=== PATIENT | male | born 1975 | race Caucasian/White ===

== ENCOUNTER 2017-08-09 11:13 | Day surgery (SDC) | payer BC, OTHER ==
[~2017-08-09] VITALS: Ht 170.2 cm; Wt 108.0 kg
--- NOTE | 2017-08-09 11:52 | RADRPT ---
PROCEDURE: XR Chest AP portable CLINICAL INDICATION: Preop lumbar surgery TECHNIQUE: An AP portable radiograph of the chest was submitted. COMPARISON: None. FINDINGS: Support Hardware: None Cardiovascular: The cardiovascular silhouette appears unremarkable. Lung Auguste: The lung auguste appear clear with no nodule, alveolar infiltrate, or interstitial promi nence evident. Pleural Spaces: No pneumothorax or pleural effusion is identified. Osseous Structures: The osseous structures appear intact. Soft Tissues: The soft tissues appear generous. IMPRESSION: Unremarkable portable chest. Physician Garima Date Time Electronically viewed and signed by Mariano Power Physician on 08/09/2017 11:51 /
[2017-08-09] MEDS ORDERED: SITA1TAB5 PO (11:53)
[2017-08-09] MEDS ORDERED: DIVA500T7 PO (11:55)
[2017-08-09] MEDS ORDERED: OXCA300T41 PO (11:56)
[2017-08-09] MEDS ORDERED: AMLO-147 PO (11:57)
[2017-08-09] MEDS ORDERED: HYDR25TA6 PO (11:57)
[2017-08-09] MEDS ORDERED: GLIP5TAB13 PO (11:58)
[2017-08-09] MEDS ORDERED: ATOR20TA38 PO (11:59)
[2017-08-09] MEDS ORDERED: INSU300I SQ (11:59)
--- NOTE | 2017-08-09 12:16 | PREOPHP ---
DATE OF ADMISSION: 08/09/2017 HISTORY OF PRESENT ILLNESS: The patient was originally seen in the office for evaluation of low back pain with pain going to the lower extremities. He was diagnosed with lumbar L4-L5, L5-S1 spondylosis with instability. Outpatient management with epidural injections were initiated. The patient did not improve. The patient also had physical therapy , which she did not respond to at all and continues to complain of low back pain with pain going to the lower extremities. According to the patient, his pain is getting worse and he wants something definitive to be done. The only option left at this point is for surgical intervention in the form of L4-L5, L5-S1 laminectomy with possible interbody fusion, positive posterolateral in situ fusion and possible posterolateral instrumentation. This was discussed with the patient in great detail. Complications of surgery were discussed extensively. The patient has agreed and wants to proceed. PAST MEDICAL HISTORY: Per chart. PAST SURGICAL HISTORY: Per chart. SOCIAL HISTORY: Deniesuse of drugs, alcohol, or tobacco. ALLERGIES: PER CHART. MEDICATIONS TAKEN AT HOME: Per chart. FAMILY HISTORY: Unremarkable. REVIEW OF SYSTEMS: Additional 10-point review of systems conducted, pertinent and positives in the HPI, otherwise negative. PHYSICAL EXAMINATION: GENERAL: The patient is awake, alert, oriented. Follows commands appropriately. HEENT: Head is atraumatic, normocephalic. Eyes sclerae clear, nonicteric. Uvula is intact. Pupils equal and reactive. No mouth. No lesions. No bleeding. NECK: Supple. No thyromegaly. No JVD. No accessory muscle use. PULMONARY: No dyspnea. No tachypnea. CARDIOVASCULAR: No JVD. No pedal edema. ABDOMEN: Soft. Without guarding. NEUROLOGIC: Awake, alert, oriented, follows commands appropriately. Upper extremities moves both sides equally. EXTREMITIES: Lower extremity examination, flexion and extension of the lumbar spine causes significant low back discomfort. Flexion and extension of the hips causes severe low back discomfort. The patient has positive leg raise on both sides. He moves both sides equally at the knees as well as the ankles. Sensation is intact. Strength is the same. LABORATORY DATA: MRI of the lumbar spine dated May 17, shows L4-L5 instability with open facets. L5-S1 instability with endplate abnormality. RECOMMENDATIONS: For the patient to undergo surgical intervention in the form of L4-L5, L5-S1 laminectomy with possible interbody fusion, possible posterolateral fusion with instrumentation. The procedure was described to the patient in great detail. Complications including infection, bleeding, permanent nerve damage, complications with anesthesia associated with stroke, heart attack, and even has been explained to the patient. The patient has agreed and wants to proceed. The patient will be admitted to the hospital thereafter for further care and management. Dictated By: Grayson Diaz MD /[email or web address]/[email or web address] /Document#: [id number]
[2017-08-09 12:20] VITALS: BP 138/102; PULSE 94; RESP 16
[2017-08-09 12:23] VITALS: Ht 170.2 cm; Wt 108.0 kg
== END 2017-08-09 12:25 | disposition home or self-care (01) ==
LOC: REC 11:13 → SDS 11:13 → UNDOADMIN 11:13 → UNDODISIN 12:25 → SDS 12:25 → EDSTATUS 08-11 13:00
PROVIDERS: ATTEND Neurological Surgery
DX: M47.896 Other spondylosis, lumbar region (principal); Z53.8 Procedure and treatment not carried out for other reasons
CPT/HCPCS: 71010

== ENCOUNTER 2017-09-07 09:59 | Inpatient (IN) | payer BC ==
[~2017-09-07] VITALS: Ht 170.2 cm; Wt 108.2 kg
[2017-09-07] VITALS (21 sets, daily range): BP systolic 98–149; BP diastolic 59–108; PULSE 80–106; RESP 13–27; Ht 170.2 cm; Wt 108.2 kg
--- NOTE | 2017-09-07 08:16 | PREOPHP ---
DATE OF ADMISSION: 09/07/2017 HISTORY OF PRESENT ILLNESS: Patient was originally seen in the office with a complaint of severe low back pain, with pain radiating to the hips and down the legs. Patient was diagnosed with a lumbar 4, lumbar 5 and S1 spondylosis. Conservative management was offered to the patient in the form of lumbar epidural steroid injections, physical therapy, as well as pain management, but unfortunately, patient failed conservative management, failed outpatient therapy. He wanted something more definitive to be done. His condition is getting worse. His pain was increasing and patient wanted something definitive to be done. Unfortunately, at this point, the only option left was surgical intervention in the form of L4-5, S1 laminectomy with possible fusion with possible instrumentation. This was discussed with the patient in great detail, complications of surgical intervention were discussed extensively including infection, bleeding, permanent nerve damage, stroke, myocardial infarction, even . Patient agreed and wants to proceed. PAST MEDICAL HISTORY: Per chart. PAST SURGICAL HISTORY: Per chart. SOCIAL HISTORY: Denies any drugs, alcohol or tobacco. ALLERGIES: PER CHART. MEDICATIONS: Taken at home, per chart. FAMILY HISTORY: Unremarkable. REVIEW OF SYSTEMS: Additional 10-point review of systems conducted. The patient denies any debility. Denies any bowel or bladder dysfunction. PHYSICAL EXAMINATION: GENERAL APPEARANCE: Patient is awake, alert, oriented. Follows commands properly. HEENT: Unremarkable. No cyanosis. Mouth: No lesions. NECK: Supple. PULMONARY: No dyspnea. No tachypnea. CARDIAC: No JVD. No pedal edema. ABDOMEN: Soft, without guarding. NEUROLOGIC: He is awake, alert, oriented. Follows commands. GCS 15. Cranial nerves intact. UPPER EXTREMITIES: Moves both sides equally at the shoulders, elbows and wrists. LOWER EXTREMITIES: Upon flexion-extension of the lumbar spine, the patient has low back discomfort. Flexion-extension of the hips causes the patient low back discomfort. He has equal flexion-extension at the knees, as well as ankle strength is equal on both sides. Sensation is intact. DIAGNOSTIC DATA: MRI of the lumbar spine shows L4-5, S1 spondylosis. IMPRESSION: L4-5, S1 spondylosis with mechanical low back pain. RECOMMENDATIONS: Patient to undergo surgical intervention, L4-5, S1 laminectomy, with possible fusion with possible instrumentation. This was discussed with the patient in great detail. Questions were answered. Complications of surgery discussed extensively, and patient will be admitted to the hospital thereafter for further care and management and postop care. Dictated By: Grayson Diaz MD /[email or web address]/mirta /Document#: [id number]
[~2017-09-07 09:59] MED LIST: AMLO-147 PO; ATOR20TA38 PO; DIVA500T7 PO; GLIP5TAB13 PO; HYDR25TA6 PO; INSU300I SQ; OXCA300T41 PO; ROCURONIUM 50 MG INJ ONE; SITA1TAB5 PO
[2017-09-07] MEDS ORDERED: GELATIN SIZE 100 SPONGE ONE ×2 (12:19→14:45)
[2017-09-07] MEDS ORDERED: BUPIVACAINE 0.5%/EPI (SDV) 30 ML INJ ONE (12:19)
[2017-09-07] MEDS ORDERED: THROMBIN 5000 UNIT VIAL ONE ×2 (12:19→14:45)
[2017-09-07] MEDS ORDERED: PROPOFOL 20 ML ONE (12:50)
[2017-09-07] MEDS ORDERED: LIDOCAINE 2% (SDV) 5 ML INJ ONE (12:50)
[2017-09-07] MEDS ORDERED: MIDAZOLAM 1 MG/ML 2 ML INJ ONE (12:50)
[2017-09-07] MEDS ORDERED: SUCCINYLCHOLINE CHLORIDE 100 MG/5 ML SYG IV ONE (12:50)
[2017-09-07] MEDS ORDERED: ONDANSETRON 4 MG INJ IV PRN ×2 (13:00→16:00)
[2017-09-07] MEDS ORDERED: VANCOMYCIN 1 GM (PMX) 250 ML ONE (13:06)
[2017-09-07] MEDS ORDERED: FAMOTIDINE 20 MG INJ ONE (13:07)
[2017-09-07] MEDS ORDERED: ONDANSETRON 4 MG INJ ONE (13:07)
[2017-09-07] MEDS ORDERED: PHENYLephrine (100 MCG/ML) 5ML SYG ONE ×4 (13:18→14:44)
[2017-09-07] MEDS ORDERED: ESMOLOL 10 ML ONE (13:50)
[2017-09-07] MEDS ORDERED: EPHEDrine SULFATE 50 MG/5 ML SYG ONE (14:20)
--- NOTE | 2017-09-07 14:58 | OPR ---
Date/Time of Note Date/Time of Note DATE: 09/07/17 TIME: 14:55 Operative Report Procedure Date: Sep 07, 2017 Preoperative Diagnosis LUMBAR SPONDYLOSIS WITH MECHANICAL LOW BACK PAIN AND LEG PAIN, L4-5-S1 Postoperative Diagnosis SAME Operation/Procedure Performed LUMBAR FOUR FIVE AND SACRAL ONE LAMINECTOMY WITH POSTEROLATERAL FUSION AND PEDICLE SCREW INSTRUMENTATION Surgeon BARBARA CALIXTO see signature line Director Game RICK ROSALES Anesthesia Type: general Anesthesiologist: MEL UMANZOR DO Estimated Blood Loss: 250 - 300 ml's Transfusion none Specimen LAMINA Grafts/Implants none Complications none Pt Condition Post Procedure: stable Procedure Description LUMBAR LAMINECTOMY WITH FUSION AND INSTRUMENTATION BARBARA CALIXTO MD Sep 07, 2017 14:58
[2017-09-07] MEDS: LACTATED RINGER'S 1,000 ML IV SCH ×2 (15:00→22:03)
[2017-09-07] MEDS ORDERED: SUGAMMADEX SODIUM 200 MG/2 ML VIAL IV ONE (15:18)
[2017-09-07] MEDS ORDERED: FENTAnyl 50 MCG/ML VIAL ONE (15:51)
[2017-09-07] MEDS ORDERED: HYDROmorphONE (0.2 MG/ML) 10ML SYG IV ONE (15:52)
[2017-09-07] MEDS ORDERED: MEPERIDINE 25 MG INJ IV PRN (16:00)
[2017-09-07] MEDS ORDERED: hydrALAzine 20 MG INJ IV PRN (16:00)
[2017-09-07] MEDS ORDERED: VANCOMYCIN 1 GM in NS 250 ML IVPB SCH (16:00)
[2017-09-07] MEDS ORDERED: PROCHLORPERAZINE 10 MG INJ IV PRN (16:00)
[2017-09-07] MEDS ORDERED: LABETALOL HCL 20MG INJ IV PRN (16:00)
[2017-09-07] MEDS ORDERED: HYDROmorphONE (0.2 MG/ML) 10ML SYG IV PRN ×2 (16:00)
[2017-09-07] MEDS ORDERED: NALOXONE (0.4 MG/ML) INJ IV PRN (16:00)
[2017-09-07] MEDS ORDERED: DIPHENHYDRAMINE 50 MG INJ IV PRN (16:00)
[2017-09-07] MEDS ORDERED: FENTAnyl 50 MCG/ML VIAL IV PRN ×2 (16:30)
[2017-09-07] MEDS: HYDROmorphONE 0.2 MG/ML PCA IV SCH (16:37)
[2017-09-07 18:52] LABS: CREATININE 1.15 mg/dl (0.61-1.24)
--- NOTE | 2017-09-07 19:10 | RADRPT ---
PROCEDURE: N T4-S1 and lumbar fusion CLINICAL INDICATION: Pain TECHNIQUE: C-arm fluoroscopy COMPARISON: None FINDINGS: Total fluoro time 18.7 seconds. 5 images submitted. There are fusion screws placed through the poste rior approach at the L4 L5 and S1 levels. Sacroiliac joints are open. Height and width of the verteb ral bodies appear intact. IMPRESSION: C-arm fluoroscopy as above RPTAT: AAOO Physician Alysia Date Time Electronically viewed and signed by Physician Alysia on 09/07/2017 18:59 MB/
[2017-09-07] MEDS ORDERED: GLUCOSE GEL 15 GRAM TUBE BUCCAL PRN (19:30)
[2017-09-07] MEDS ORDERED: GLUCOSE GEL 15 GRAM TUBE PO PRN ×2 (19:30)
[2017-09-07] MEDS ORDERED: GLUCAGON 1 MG INJ IM PRN (19:30)
[2017-09-07] MEDS ORDERED: DEXTROSE 50% 50 ML SYRINGE IV PRN ×2 (19:30)
[2017-09-07] MEDS: ATORVASTATIN 20 MG TAB PO SCH (21:54)
[2017-09-07] MEDS: OXCARBAZEPINE 300 MG TAB PO SCH (21:54)
[2017-09-07] MEDS: DIVALPROEX (EC) 500 MG TAB PO SCH (21:54)
[2017-09-07] MEDS: INSULIN ASPART [NOVOLOG] 3 ML PEN SC SCH (21:55)
[2017-09-07] MEDS: INSULIN GLARGINE [LANtus] 3 ML PEN SC SCH (21:56)
[2017-09-08] MEDS: ACCU-CHEK XX SCH ×2 (01:21→23:27)
[2017-09-08] MEDS: LACTATED RINGER'S 1,000 ML IV SCH ×3 (04:50→23:23)
[2017-09-08 05:00] VITALS: BP 141/78; PULSE 110; RESP 18
[2017-09-08] MEDS ORDERED: VANCOMYCIN 1.5 GM in SOD CHLORIDE 0.9% 250 ML IVPB SCH (05:00)
[2017-09-08] MEDS: HYDROmorphONE 0.2 MG/ML PCA IV SCH ×2 (05:04→18:32)
[2017-09-08 07:42] VITALS: BP 108/56; RESP 20
[2017-09-08] MEDS: OXCARBAZEPINE 300 MG TAB PO SCH ×2 (08:53→20:16)
[2017-09-08] MEDS: LINAGLIPTIN 5 MG TABLET PO SCH (08:54)
[2017-09-08] MEDS: DIVALPROEX (EC) 500 MG TAB PO SCH ×2 (08:54→20:16)
[2017-09-08] MEDS: metFORMIN 500 MG TAB PO SCH ×2 (08:54→17:48)
[2017-09-08] MEDS: INSULIN ASPART [NOVOLOG] 3 ML PEN SC SCH ×4 (09:01→21:00)
[2017-09-08 09:06] LABS: BASOPHILS % 0.1 % (0.0-2.0); HEMATOCRIT 36.4 % (42.0-52.0); LYMPHOCYTES # 1.9 10^3/ul (0.8-2.9); LYMPHOCYTES % 11.8 % (15.0-51.0); MEAN CORPUSCULAR HEMOGLOBIN 28.8 pg (29.0-33.0); MEAN CORPUSCULAR VOLUME 87.3 fl (82.0-101.0); MEAN PLATELET VOLUME 10.5 fl (7.4-10.4); MONOCYTE # 1.4 10^3/ul (0.3-0.9); MONOCYTES % 9.2 % (0.0-11.0); NEUTROPHIL # 12.4 10^3/ul (1.6-7.5); NEUTROPHILS % 78.5 % (39.0-77.0); PLATELET COUNT 223 10^3/UL (140-415); RED BLOOD COUNT 4.17 10^6/ul (4.70-6.10); RED CELL DISTRIBUTION WIDTH 12.7 % (11.5-14.5); WHITE BLOOD COUNT 15.7 10^3/ul (4.8-10.8)
[2017-09-08] MEDS ORDERED: INFLUENZA VIRUS VACCINE 0.5 ML SYG IM* ONE (13:00)
--- NOTE | 2017-09-08 13:43 | HP ---
Date/Time of Note Date/Time of Note DATE: 09/08/17 TIME: 13:41 Assessment/Plan VTE Prophylaxis VTE Prophylaxis Intervention: SCD's Lines/Catheters IV Catheter Type (from Nrsg): Peripheral IV Urinary Cath still in place: Yes Reason Cath still needed: urinary retention Assessment/Plan Assessment/Plan -Lumbar spondylosis with mechanical low back pain and leg pain, status post L4- L5 and sacral laminectomy with posterolateral fusion and pedicle screw instrumentation by Dr. Diaz on 09/07. Continue IV fluids, postoperative antibiotics, Dilaudid RAISIN WASHER for pain. -Hypertension -Hyperlipidemia -Diabetes, continue Tradjenta, Lantus, and NovoLog -Seizure disorder, continue Depakote Further recommendations based on clinical course. Plan of care discussed with Dr. Mills. HPI/ROS Admit Date/Time Admit Date/Time Sep 07, 2017 at 09:59 Hx of Present Illness The patient is 41-year-old male with history of hypertension hyperlipidemia, seizure disorder, diabetes and a lower back pain. Patient was evaluated by Dr. Diaz in surgical consultation for lumbar spondylosis with mechanical low back pain and leg pain failed conservative treatment. Patient was brought to the hospital and underwent L4-L5 and sacral laminectomy with posterolateral fusion and pedicle screw instrumentation by Dr. Diaz on 09/07. Prior to surgery as patient obtain a cardiology clearance from Dr. Malhotra, and neurological clearance from Dr. Castillo. Patient is admitted for further evaluation and management to medical surgical floor. PMH/Family/Social Past Medical History Medical History: diabetes, hypertension, hyperthyroid, other (Seizure disorder) Past Surgical History Status post appendectomy many years ago Family History Significant Family History: other (Father from heart attack at age of 55, mother and sister with diabetes) Social History Alcohol Use: none Smoking Status: Never smoker Drug Use: none Exam/Review of Systems Vital Signs Vitals Vital Signs Date Time Temp Pulse Resp B/P Pulse Ox O2 Delivery O2 Flow Rate FiO2 09/08/17 12:48 16 09/08/17 07:42 98.0 113 108/56 95 09/08/17 05:00 Nasal Cannula 2.0 Intake and Output 09/07/17 09/07/17 09/08/17 15:00 23:00 07:00 Intake Total 2000 ml 370 ml 1400 ml Output Total 915 ml 1835 ml Balance 2000 ml -545 ml -435 ml Exam Constitutional: alert, oriented Head: normocephalic Neck: supple Respiratory: normal air movement Cardiovascular: nl pulses Gastrointestinal: non-tender, soft Musculoskeletal: nl extremities to inspection, other (Status post back surgery) Neurological: nl mental status Skin: nl turgor Labs Result Diagram: 09/08/17 0834 09/07/17 1818 Medications Medications Current Medications Ondansetron HCl 4 mg 4 mg Q6H PRN IV NAUSEA AND/OR VOMITING; Start 09/07/17 at 13:00 Lactated Ringer's (Lr) 1,000 ml @ 125 mls/hr Q8H IV Last administered on 10:32; Admin Dose 125 MLS/HR; Start 09/07/17 at 15:00 Morphine Sulfate (morphine) 2 mg Q2H PRN IV severe pain; Start 09/07/17 at 13: 00 Acetaminophen/ Hydrocodone Bitart ([place] (10/325)) 1 tab Q4H PRN PO PAIN; Start 09/07/17 at 13:00 Naloxone HCl (Narcan) 0.2 mg PRN PRN IV DECREASED REPIRATORY RATE; Start 09/07 at 16:00 Hydromorphone HCl (Dilaudid RAISIN WASHER) Q4PCA IV Last administered on 09/08/17 05:04 ; Admin Dose 6 MG; Start 09/07/17 at 16:00 Atorvastatin Calcium (Lipitor) 20 mg HS PO Last administered on 09/07/17 21: 54; Admin Dose 20 MG; Start 09/07/17 at 21:00 Divalproex Sodium (Depakote) 1,000 mg BID PO Last administered on 09/08/17 08: 54; Admin Dose 1,000 MG; Start 09/07/17 at 21:00 Oxcarbazepine (Trileptal) 600 mg BID PO Last administered on 09/08/17 08:53; Admin Dose 600 MG; Start 09/07/17 at 21:00 Diagnostic Test (Pha) (Accu-Chek) 1 ea 02 XX Last administered on 09/08/17 01: 21; Admin Dose 1 EA; Start 09/08/17 at 02:00 Insulin Glargine (Lantus) 10 unit DAILY@20 SC Last administered on 09/07/17 21:56; Admin Dose 10 UNIT; Start 09/07/17 at 20:30 Miscellaneous Information 1 ea NOTE XX ; Start 09/07/17 at 19:30 Glucose (Glutose) 15 gm Q15M PRN PO DECREASED GLUCOSE; Start 09/07/17 at 19:30 Glucose (Glutose) 22.5 gm Q15M PRN PO DECREASED GLUCOSE; Start 09/07/17 at 19: 30 Dextrose (D50w Syringe) 25 ml Q15M PRN IV DECREASED GLUCOSE; Start 09/07/17 at 19:30 Dextrose (D50w Syringe) 50 ml Q15M PRN IV DECREASED GLUCOSE; Start 09/07/17 at 19:30 Glucagon (Glucagen) 1 mg Q15M PRN IM DECREASED GLUCOSE; Start 09/07/17 at 19: 30 Glucose (Glutose) 15 gm Q15M PRN BUCCAL DECREASED GLUCOSE; Start 09/07/17 at 19:30 Linagliptin 5 mg 5 mg DAILY PO Last administered on 09/08/17 08:54; Admin Dose 5 MG; Start 09/08/17 at 09:00 Vancomycin HCl/ Sodium Chloride (Vancocin/NS) 250 ml @ 83.333 mls/ hr Q12H IVPB ; Start 09/08/17 at 17:00 ELINOR RODARTE Sep 08, 2017 13:42
[2017-09-08 14:05] VITALS: BP 110/75; RESP 20
--- NOTE | 2017-09-08 15:24 | CONS ---
Date/Time of Note Date/Time of Note DATE: 09/08/17 TIME: 15:23 Assessment/Plan Assessment/Plan Additional Assessment/Plan seen/examined awake/alert/follows/moves all sp l4-5-s1 lami with fusion/instrumentation good post op progress pt feeling better has ambulated with pt today hemovac functional, will dc hemovac in 24-48hrs. dc lambert. Consultation Date/Type/Reason Admit Date/Time Sep 07, 2017 at 09:59 Initial Consult Date Exam/Review of Systems Vital Signs Vitals Vital Signs Date Time Temp Pulse Resp B/P Pulse Ox O2 Delivery O2 Flow Rate FiO2 09/08/17 14:05 98.0 106 20 110/75 97 09/08/17 05:00 Nasal Cannula 2.0 Intake and Output 09/07/17 09/07/17 09/08/17 15:00 23:00 07:00 Intake Total 2000 ml 370 ml 1400 ml Output Total 915 ml 1835 ml Balance 2000 ml -545 ml -435 ml Results Result Diagram: 09/08/17 0834 09/07/17 1818 Results 24 hrs Laboratory Tests Test 09/07/17 18:18 09/07/17 21:50 09/08/17 01:19 09/08/17 08:28 Blood Urea Nitrogen 20 Creatinine 1.15 Bedside Glucose 252 H 237 H 213 Test 09/08/17 08:34 09/08/17 12:43 White Blood Count 15.7 H Red Blood Count 4.17 L Hemoglobin 12.0 L Hematocrit 36.4 L Mean Corpuscular Volume 87.3 Mean Corpuscular Hemoglobin 28.8 L Mean Corpuscular Hemoglobin Concent 33.0 Red Cell Distribution Width 12.7 Platelet Count 223 Mean Platelet Volume 10.5 H Neutrophils % 78.5 H Lymphocytes % 11.8 L Monocytes % 9.2 Eosinophils % 0.0 Basophils % 0.1 Nucleated Red Blood Cells % 0.0 Neutrophils # 12.4 H Lymphocytes # 1.9 Monocytes # 1.4 H Eosinophils # 0.0 Basophils # 0.0 Nucleated Red Blood Cells # 0.0 Bedside Glucose 193 Medications Medications Current Medications Ondansetron HCl 4 mg 4 mg Q6H PRN IV NAUSEA AND/OR VOMITING; Start 09/07/17 at 13:00 Lactated Ringer's (Lr) 1,000 ml @ 125 mls/hr Q8H IV Last administered on 10:32; Admin Dose 125 MLS/HR; Start 09/07/17 at 15:00 Morphine Sulfate (morphine) 2 mg Q2H PRN IV severe pain; Start 09/07/17 at 13: 00 Acetaminophen/ Hydrocodone Bitart ([place] (10/325)) 1 tab Q4H PRN PO PAIN; Start 09/07/17 at 13:00 Naloxone HCl (Narcan) 0.2 mg PRN PRN IV DECREASED REPIRATORY RATE; Start 09/07 at 16:00 Hydromorphone HCl (Dilaudid WET PROCESS MILLER) Q4PCA IV Last administered on 09/08/17 05:04 ; Admin Dose 6 MG; Start 09/07/17 at 16:00 Atorvastatin Calcium (Lipitor) 20 mg HS PO Last administered on 09/07/17 21: 54; Admin Dose 20 MG; Start 09/07/17 at 21:00 Divalproex Sodium (Depakote) 1,000 mg BID PO Last administered on 09/08/17 08: 54; Admin Dose 1,000 MG; Start 09/07/17 at 21:00 Oxcarbazepine (Trileptal) 600 mg BID PO Last administered on 09/08/17 08:53; Admin Dose 600 MG; Start 09/07/17 at 21:00 Diagnostic Test (Pha) (Accu-Chek) 1 ea 02 XX Last administered on 09/08/17 01: 21; Admin Dose 1 EA; Start 09/08/17 at 02:00 Insulin Glargine (Lantus) 10 unit DAILY@20 SC Last administered on 09/07/17 21:56; Admin Dose 10 UNIT; Start 09/07/17 at 20:30 Miscellaneous Information 1 ea NOTE XX ; Start 09/07/17 at 19:30 Glucose (Glutose) 15 gm Q15M PRN PO DECREASED GLUCOSE; Start 09/07/17 at 19:30 Glucose (Glutose) 22.5 gm Q15M PRN PO DECREASED GLUCOSE; Start 09/07/17 at 19: 30 Dextrose (D50w Syringe) 25 ml Q15M PRN IV DECREASED GLUCOSE; Start 09/07/17 at 19:30 Dextrose (D50w Syringe) 50 ml Q15M PRN IV DECREASED GLUCOSE; Start 09/07/17 at 19:30 Glucagon (Glucagen) 1 mg Q15M PRN IM DECREASED GLUCOSE; Start 09/07/17 at 19: 30 Glucose (Glutose) 15 gm Q15M PRN BUCCAL DECREASED GLUCOSE; Start 09/07/17 at 19:30 Linagliptin 5 mg 5 mg DAILY PO Last administered on 09/08/17t 08:54; Admin Dose 5 MG; Start 09/08/17 at 09:00 Vancomycin HCl/ Sodium Chloride (Vancocin/NS) 250 ml @ 83.333 mls/ hr Q12H IVPB ; Start 09/08/17 at 17:00 Miscellaneous Information (*Rx Drug Level Order Reminder*) 1 ONCE ONCE XX ; Start 09/09/17 at 04:00; Stop 09/09/17 at 04:01 COCO JONES PA-C Sep 08, 2017 15:24
[2017-09-08] MEDS ORDERED: VANCOMYCIN IV PER PHARMACY XX SCH (15:30)
[2017-09-08] MEDS: VANCOMYCIN 1.5 GM in SOD CHLORIDE 0.9% 250 ML IVPB SCH (17:45)
[2017-09-08] MEDS: ATORVASTATIN 20 MG TAB PO SCH (20:16)
[2017-09-08] MEDS: INSULIN GLARGINE [LANtus] 3 ML PEN SC SCH (20:25)
[2017-09-08] MEDS ORDERED: [UNRECOGNIZED DRUG - OTHER] SQ SCH (21:00)
[2017-09-08] MEDS ORDERED: INSULIN GLARGINE HUM REC ANLOG 20 UNIT SQ SCH (21:00)
[2017-09-08 21:16] VITALS: BP 133/62; RESP 22
[2017-09-09 01:52] VITALS: BP 108/74; RESP 22
[2017-09-09 04:20] LABS: BASOPHILS % 0.3 % (0.0-2.0); EOSINOPHILS # 0.1 10^3/ul (0.0-0.5); EOSINOPHILS % 0.9 % (0.0-7.0); HEMATOCRIT 32.6 % (42.0-52.0); HEMOGLOBIN 11.2 g/dl (14.0-18.0); LYMPHOCYTES # 2.4 10^3/ul (0.8-2.9); LYMPHOCYTES % 17.9 % (15.0-51.0); MEAN CORPUSCULAR HEMOGLOBIN 29.5 pg (29.0-33.0); MEAN CORPUSCULAR HGB CONC 34.4 g/dl (32.0-37.0); MEAN CORPUSCULAR VOLUME 85.8 fl (82.0-101.0); MEAN PLATELET VOLUME 10.6 fl (7.4-10.4); MONOCYTE # 1.3 10^3/ul (0.3-0.9); MONOCYTES % 9.3 % (0.0-11.0); NEUTROPHIL # 9.6 10^3/ul (1.6-7.5); NEUTROPHILS % 70.9 % (39.0-77.0); PLATELET COUNT 193 10^3/UL (140-415); RED CELL DISTRIBUTION WIDTH 12.5 % (11.5-14.5); WHITE BLOOD COUNT 13.5 10^3/ul (4.8-10.8)
[2017-09-09 04:27] LABS: CALCIUM 7.9 mg/dl (8.4-10.2); CREATININE 0.78 mg/dl (0.61-1.24); POTASSIUM 3.5 mmol/L (3.5-5.1)
[2017-09-09] MEDS: VANCOMYCIN 1.5 GM in SOD CHLORIDE 0.9% 250 ML IVPB SCH (05:13)
[2017-09-09] MEDS: LACTATED RINGER'S 1,000 ML IV SCH ×3 (06:20→22:54)
[2017-09-09] MEDS: INSULIN ASPART [NOVOLOG] 3 ML PEN SC SCH ×4 (07:50→20:14)
[2017-09-09 08:07] VITALS: BP 133/81; RESP 22
[2017-09-09] MEDS: LINAGLIPTIN 5 MG TABLET PO SCH (08:28)
[2017-09-09] MEDS: metFORMIN 500 MG TAB PO SCH ×2 (08:28→17:40)
[2017-09-09] MEDS: OXCARBAZEPINE 300 MG TAB PO SCH ×2 (08:29→19:46)
[2017-09-09] MEDS: DIVALPROEX (EC) 500 MG TAB PO SCH ×2 (08:31→19:47)
[2017-09-09] MEDS: HYDROmorphONE 0.2 MG/ML PCA IV SCH (09:50)
--- NOTE | 2017-09-09 12:08 | CONS ---
Date/Time of Note Date/Time of Note DATE: 09/09/17 TIME: 12:06 Assessment/Plan Assessment/Plan Additional Assessment/Plan seen/examined awake/alert/follows/moves all sp l4-5-s1 lami with fusion/instrumentation will dc lehr attendant lumbar corsett pending, advised nurse to fu with case management add flexerill for muscle spasm hemovac with approx 110 cc collection this am, will dc hemovac in am Consultation Date/Type/Reason Admit Date/Time Sep 07, 2017 at 09:59 Exam/Review of Systems Vital Signs Vitals Vital Signs Date Time Temp Pulse Resp B/P Pulse Ox O2 Delivery O2 Flow Rate FiO2 09/09/17 09:00 18 09/09/17 08:07 98.7 100 133/81 92 09/08/17 05:00 Nasal Cannula 2.0 Intake and Output 09/08/17 09/08/17 09/09/17 14:59 22:59 06:59 Intake Total 500 ml 1620 ml 1875 ml Output Total 150 ml 1350 ml 1510 ml Balance 350 ml 270 ml 365 ml Results Result Diagram: 09/09/17 0343 09/09/17 0343 Results 24 hrs Laboratory Tests Test 09/08/17 12:43 09/08/17 17:31 09/08/17 20:17 09/09/17 03:43 Bedside Glucose 193 113 147 White Blood Count 13.5 H Red Blood Count 3.80 L Hemoglobin 11.2 L Hematocrit 32.6 L Mean Corpuscular Volume 85.8 Mean Corpuscular Hemoglobin 29.5 Mean Corpuscular Hemoglobin Concent 34.4 Red Cell Distribution Width 12.5 Platelet Count 193 Mean Platelet Volume 10.6 H Neutrophils % 70.9 Lymphocytes % 17.9 Monocytes % 9.3 Eosinophils % 0.9 Basophils % 0.3 Nucleated Red Blood Cells % 0.0 Neutrophils # 9.6 H Lymphocytes # 2.4 Monocytes # 1.3 H Eosinophils # 0.1 Basophils # 0.0 Nucleated Red Blood Cells # 0.0 Sodium Level 133 L Potassium Level 3.5 Chloride Level 93 L Carbon Dioxide Level 33 H Anion Gap 11 Blood Urea Nitrogen 11 # Creatinine 0.78 Glucose Level 144 Calcium Level 7.9 L Vancomycin Level Trough 7.7 L Test 09/09/17 08:37 Bedside Glucose 123 Medications Medications Current Medications Ondansetron HCl 4 mg 4 mg Q6H PRN IV NAUSEA AND/OR VOMITING; Start 09/07/17 at 13:00 Lactated Ringer's (Lr) 1,000 ml @ 125 mls/hr Q8H IV Last administered on 23:23; Admin Dose 125 MLS/HR; Start 09/07/17 at 15:00 Morphine Sulfate (morphine) 2 mg Q2H PRN IV severe pain; Start 09/07/17 at 13: 00 Acetaminophen/ Hydrocodone Bitart ([place] (10/325)) 1 tab Q4H PRN PO PAIN; Start 09/07/17 at 13:00 Naloxone HCl (Narcan) 0.2 mg PRN PRN IV DECREASED REPIRATORY RATE; Start 09/07 at 16:00 Hydromorphone HCl (Dilaudid TRIAGE CLINICIAN) Q4PCA IV Last administered on 09/09/17 09:50 ; Admin Dose 6 MG; Start 09/07/17 at 16:00 Atorvastatin Calcium (Lipitor) 20 mg HS PO Last administered on 09/08/17 20:16 ; Admin Dose 20 MG; Start 09/07/17 at 21:00 Divalproex Sodium (Depakote) 1,000 mg BID PO Last administered on 09/09/17 08: 31; Admin Dose 1,000 MG; Start 09/07/17 at 21:00 Oxcarbazepine (Trileptal) 600 mg BID PO Last administered on 09/09/17 08:29; Admin Dose 600 MG; Start 09/07/17 at 21:00 Diagnostic Test (Pha) (Accu-Chek) 1 ea 02 XX Last administered on 09/08/17 01: 21; Admin Dose 1 EA; Start 09/08/17 at 02:00 Insulin Glargine (Lantus) 10 unit DAILY@20 SC Last administered on 09/08/17 20 :25; Admin Dose 10 UNIT; Start 09/07/17 at 20:30 Miscellaneous Information 1 ea NOTE XX ; Start 09/07/17 at 19:30 Glucose (Glutose) 15 gm Q15M PRN PO DECREASED GLUCOSE; Start 09/07/17 at 19:30 Glucose (Glutose) 22.5 gm Q15M PRN PO DECREASED GLUCOSE; Start 09/07/17 at 19: 30 Dextrose (D50w Syringe) 25 ml Q15M PRN IV DECREASED GLUCOSE; Start 09/07/17 at 19:30 Dextrose (D50w Syringe) 50 ml Q15M PRN IV DECREASED GLUCOSE; Start 09/07/17 at 19:30 Glucagon (Glucagen) 1 mg Q15M PRN IM DECREASED GLUCOSE; Start 09/07/17 at 19: 30 Glucose (Glutose) 15 gm Q15M PRN BUCCAL DECREASED GLUCOSE; Start 09/07/17 at 19:30 Linagliptin 5 mg 5 mg DAILY PO Last administered on 09/09/17t 08:28; Admin Dose 5 MG; Start 09/08/17 at 09:00 Vancomycin HCl/ Sodium Chloride (Vancocin/NS) 250 ml @ 83.333 mls/ hr Q8H IVPB ; Start 09/09/17 at 13:00 COCO JONES PA-C Sep 09, 2017 12:08
[2017-09-09] MEDS: CYCLOBENZAPRINE 10 MG TAB PO SCH ×2 (12:40→19:47)
[2017-09-09] MEDS ORDERED: VANCOMYCIN 1.25 GM in SOD CHLORIDE 0.9% 250 ML IVPB SCH (13:00)
--- NOTE | 2017-09-09 15:16 | PN ---
Date/Time of Note Date/Time of Note DATE: 09/09/17 TIME: 15:12 Assessment/Plan Lines/Catheters IV Catheter Type (from Nrsg): Peripheral IV Urinary Cath still in place: No Assessment/Plan Assessment/Plan -Lumbar spondylosis with mechanical low back pain and leg pain, status post L4- L5 and sacral laminectomy with posterolateral fusion and pedicle screw instrumentation by Dr. Diaz on 09/07. Continue IV fluids, postoperative antibiotics, Dilaudid MOBILE QA TESTER for pain. -Hypertension -Hyperlipidemia -Diabetes, continue Tradjenta, Lantus, and NovoLog -Seizure disorder, continue Depakote Further recommendations based on clinical course. Plan of care discussed with Dr. Mills. Subjective 24 Hr Interval Summary Free Text/Dictation - NAD, sleeping - WBC trended down - MOBILE QA TESTER dcd - IVF dcd - plan to remove Hemovac to vann per staff - walked with PT- tolerated well. - no new issues last night per staff Cardiovascular: no complaints Gastrointestinal: no complaints Genitourinary: no complaints Musculoskeletal: bone/joint pain Exam/Review of Systems Vital Signs Vitals Vital Signs Date Time Temp Pulse Resp B/P Pulse Ox O2 Delivery O2 Flow Rate FiO2 09/09/17 12:34 18 09/09/17 08:07 98.7 100 133/81 92 09/08/17 05:00 Nasal Cannula 2.0 Intake and Output 09/08/17 09/08/17 09/09/17 15:00 23:00 07:00 Intake Total 500 ml 1620 ml 1875 ml Output Total 150 ml 1350 ml 1510 ml Balance 350 ml 270 ml 365 ml Exam Constitutional: alert Respiratory: diminished breath sounds, normal air movement Cardiovascular: nl pulses Musculoskeletal: nl extremities to inspection Extremities: normal pulses Neurological: other Results Result Diagram: 09/09/17 0343 09/09/17 0343 Results 24 hrs Laboratory Tests Test 09/08/17 17:31 09/08/17 20:17 09/09/17 03:43 09/09/17 08:37 Bedside Glucose 113 147 123 White Blood Count 13.5 H Red Blood Count 3.80 L Hemoglobin 11.2 L Hematocrit 32.6 L Mean Corpuscular Volume 85.8 Mean Corpuscular Hemoglobin 29.5 Mean Corpuscular Hemoglobin Concent 34.4 Red Cell Distribution Width 12.5 Platelet Count 193 Mean Platelet Volume 10.6 H Neutrophils % 70.9 Lymphocytes % 17.9 Monocytes % 9.3 Eosinophils % 0.9 Basophils % 0.3 Nucleated Red Blood Cells % 0.0 Neutrophils # 9.6 H Lymphocytes # 2.4 Monocytes # 1.3 H Eosinophils # 0.1 Basophils # 0.0 Nucleated Red Blood Cells # 0.0 Sodium Level 133 L Potassium Level 3.5 Chloride Level 93 L Carbon Dioxide Level 33 H Anion Gap 11 Blood Urea Nitrogen 11 # Creatinine 0.78 Glucose Level 144 Calcium Level 7.9 L Vancomycin Level Trough 7.7 L Test 09/09/17 12:38 Bedside Glucose 132 Medications Medications Current Medications Ondansetron HCl 4 mg 4 mg Q6H PRN IV NAUSEA AND/OR VOMITING; Start 09/07/17 at 13:00 Lactated Ringer's (Lr) 1,000 ml @ 125 mls/hr Q8H IV Last administered on 23:23; Admin Dose 125 MLS/HR; Start 09/07/17 at 15:00 Morphine Sulfate (morphine) 2 mg Q2H PRN IV severe pain; Start 09/07/17 at 13: 00 Acetaminophen/ Hydrocodone Bitart ([place] (10/325)) 1 tab Q4H PRN PO PAIN; Start 09/07/17 at 13:00 Naloxone HCl (Narcan) 0.2 mg PRN PRN IV DECREASED REPIRATORY RATE; Start 09/07 at 16:00 Atorvastatin Calcium (Lipitor) 20 mg HS PO Last administered on 09/08/17 20:16 ; Admin Dose 20 MG; Start 09/07/17 at 21:00 Divalproex Sodium (Depakote) 1,000 mg BID PO Last administered on 09/09/17 08: 31; Admin Dose 1,000 MG; Start 09/07/17 at 21:00 Oxcarbazepine (Trileptal) 600 mg BID PO Last administered on 09/09/17 08:29; Admin Dose 600 MG; Start 09/07/17 at 21:00 Diagnostic Test (Pha) (Accu-Chek) 1 ea 02 XX Last administered on 09/08/17 01: 21; Admin Dose 1 EA; Start 09/08/17 at 02:00 Insulin Glargine (Lantus) 10 unit DAILY@20 SC Last administered on 09/08/17 20 :25; Admin Dose 10 UNIT; Start 09/07/17 at 20:30 Miscellaneous Information 1 ea NOTE XX ; Start 09/07/17 at 19:30 Glucose (Glutose) 15 gm Q15M PRN PO DECREASED GLUCOSE; Start 09/07/17 at 19:30 Glucose (Glutose) 22.5 gm Q15M PRN PO DECREASED GLUCOSE; Start 09/07/17 at 19: 30 Dextrose (D50w Syringe) 25 ml Q15M PRN IV DECREASED GLUCOSE; Start 09/07/17 at 19:30 Dextrose (D50w Syringe) 50 ml Q15M PRN IV DECREASED GLUCOSE; Start 09/07/17 at 19:30 Glucagon (Glucagen) 1 mg Q15M PRN IM DECREASED GLUCOSE; Start 09/07/17 at 19: 30 Glucose (Glutose) 15 gm Q15M PRN BUCCAL DECREASED GLUCOSE; Start 09/07/17 at 19:30 Linagliptin (Tradjenta) 5 mg DAILY PO Last administered on 09/09/17 08:28; Admin Dose 5 MG; Start 09/08/17 at 09:00 Cyclobenzaprine HCl (Flexeril) 10 mg TID PO Last administered on 09/09/17 12: 40; Admin Dose 10 MG; Start 09/09/17 at 13:00 PATRICE WYATT Sep 09, 2017 15:16
[2017-09-09] MEDS: morphine 2 MG INJ IV PRN ×3 (17:41→23:48)
[2017-09-09] MEDS: ATORVASTATIN 20 MG TAB PO SCH (19:47)
[2017-09-09 20:00] VITALS: BP 143/63; RESP 19
[2017-09-09] MEDS: INSULIN GLARGINE [LANtus] 3 ML PEN SC SCH (20:16)
[2017-09-10] MEDS: ACCU-CHEK XX SCH (01:40)
[2017-09-10 02:00] VITALS: BP 149/92; RESP 19
[2017-09-10] MEDS: morphine 2 MG INJ IV PRN ×2 (03:16→05:56)
[2017-09-10] MEDS: LACTATED RINGER'S 1,000 ML IV SCH ×3 (06:42→20:45)
[2017-09-10 07:56] VITALS: BP 133/75; RESP 18
[2017-09-10] MEDS: CYCLOBENZAPRINE 10 MG TAB PO SCH ×3 (08:19→20:44)
[2017-09-10] MEDS: OXCARBAZEPINE 300 MG TAB PO SCH ×2 (08:19→20:43)
[2017-09-10] MEDS: LINAGLIPTIN 5 MG TABLET PO SCH (08:19)
[2017-09-10] MEDS: metFORMIN 500 MG TAB PO SCH ×2 (08:20→17:56)
[2017-09-10] MEDS: DIVALPROEX (EC) 500 MG TAB PO SCH ×2 (08:20→20:43)
[2017-09-10] MEDS: INSULIN ASPART [NOVOLOG] 3 ML PEN SC SCH ×4 (08:59→20:44)
[2017-09-10 14:00] VITALS: BP 120/89; RESP 19
[2017-09-10] MEDS: HYDROCODONE/APAP (10/325) TAB PO PRN (14:36)
--- NOTE | 2017-09-10 15:46 | CONS ---
Date/Time of Note Date/Time of Note DATE: 09/10/17 TIME: 15:45 Assessment/Plan Assessment/Plan Additional Assessment/Plan seen/examined awake/alert/follows/moves all sp l4-5-s1 lami with fusion drain dced, minimal collection pt/ot may go home in 24-48hrs if pain under control Consultation Date/Type/Reason Admit Date/Time Sep 07, 2017 at 09:59 Exam/Review of Systems Vital Signs Vitals Vital Signs Date Time Temp Pulse Resp B/P Pulse Ox O2 Delivery O2 Flow Rate FiO2 09/10/17 07:56 98.0 80 18 133/75 100 09/08/17 05:00 Nasal Cannula 2.0 Intake and Output 09/09/17 09/09/17 09/10/17 15:00 23:00 07:00 Intake Total 625 ml 1160 ml 1200 ml Output Total 1540 ml 1180 ml Balance 625 ml -380 ml 20 ml Results Result Diagram: 09/09/17 0343 09/09/17 0343 Results 24 hrs Laboratory Tests Test 09/09/17 17:33 09/09/17 20:13 09/10/17 08:55 09/10/17 12:42 Bedside Glucose 120 129 146 193 Medications Medications Current Medications Ondansetron HCl 4 mg 4 mg Q6H PRN IV NAUSEA AND/OR VOMITING; Start 09/07/17 at 13:00 Lactated Ringer's (Lr) 1,000 ml @ 125 mls/hr Q8H IV Last administered on 23:23; Admin Dose 125 MLS/HR; Start 09/07/17 at 15:00 Morphine Sulfate (morphine) 2 mg Q2H PRN IV severe pain Last administered on 05:56; Admin Dose 2 MG; Start 09/07/17 at 13:00 Acetaminophen/ Hydrocodone Bitart ([place] (10/325)) 1 tab Q4H PRN PO PAIN Last administered on 09/10/17 14:36; Admin Dose 1 TAB; Start 09/07/17 at 13:00 Naloxone HCl (Narcan) 0.2 mg PRN PRN IV DECREASED REPIRATORY RATE; Start 09/07 at 16:00 Atorvastatin Calcium (Lipitor) 20 mg HS PO Last administered on 09/09/17 19:47 ; Admin Dose 20 MG; Start 09/07/17 at 21:00 Divalproex Sodium (Depakote) 1,000 mg BID PO Last administered on 09/10/17 08: 20; Admin Dose 1,000 MG; Start 09/07/17 at 21:00 Oxcarbazepine (Trileptal) 600 mg BID PO Last administered on 09/10/17 08:19; Admin Dose 600 MG; Start 09/07/17 at 21:00 Diagnostic Test (Pha) (Accu-Chek) 1 ea 02 XX Last administered on 09/08/17 01: 21; Admin Dose 1 EA; Start 09/08/17 at 02:00 Insulin Glargine (Lantus) 10 unit DAILY@20 SC Last administered on 09/09/17 20 :16; Admin Dose 10 UNIT; Start 09/07/17 at 20:30 Miscellaneous Information 1 ea NOTE XX ; Start 09/07/17 at 19:30 Glucose (Glutose) 15 gm Q15M PRN PO DECREASED GLUCOSE; Start 09/07/17 at 19:30 Glucose (Glutose) 22.5 gm Q15M PRN PO DECREASED GLUCOSE; Start 09/07/17 at 19: 30 Dextrose (D50w Syringe) 25 ml Q15M PRN IV DECREASED GLUCOSE; Start 09/07/17 at 19:30 Dextrose (D50w Syringe) 50 ml Q15M PRN IV DECREASED GLUCOSE; Start 09/07/17 at 19:30 Glucagon (Glucagen) 1 mg Q15M PRN IM DECREASED GLUCOSE; Start 09/07/17 at 19: 30 Glucose (Glutose) 15 gm Q15M PRN BUCCAL DECREASED GLUCOSE; Start 09/07/17 at 19:30 Linagliptin (Tradjenta) 5 mg DAILY PO Last administered on 09/10/17 08:19; Admin Dose 5 MG; Start 09/08/17 at 09:00 Cyclobenzaprine HCl (Flexeril) 10 mg TID PO Last administered on 09/10/17 12: 20; Admin Dose 10 MG; Start 09/09/17 at 13:00 COCO JONES PA-C Sep 10, 2017 15:46
[2017-09-10] MEDS ORDERED: MAGNESIUM HYDROXIDE 30ML CUP PO PRN (18:00)
[2017-09-10] MEDS ORDERED: MAGNESIUM HYDROXIDE 30ML CUP PO ONE (18:00)
--- NOTE | 2017-09-10 18:02 | PN ---
Date/Time of Note Date/Time of Note DATE: 09/10/17 TIME: 17:53 Assessment/Plan Lines/Catheters IV Catheter Type (from Nrsg): Saline Lock Urinary Cath still in place: No Assessment/Plan Assessment/Plan -- Sleep apnea; Hx Sleep apnea per patient - staff checked o2 sat while sleeping- 89 % for appx a sec- on 1 liter o2 by NC. will get ABG , bipap at night - pulmonary consult will be appreciated -Lumbar spondylosis with mechanical low back pain and leg pain, status post L4- L5 and sacral laminectomy with posterolateral fusion and pedicle screw instrumentation by Dr. Diaz on 09/07. Continue IV fluids, postoperative antibiotics, Dilaudid CASH PROCESSING SPECIALIST for pain. -Hypertension -Hyperlipidemia -Diabetes, continue Tradjenta, Lantus, and NovoLog -Seizure disorder, continue Depakote Further recommendations based on clinical course. Plan of care discussed with Dr. Mills. Subjective 24 Hr Interval Summary Free Text/Dictation - NAD, sleeping, snoring- said he has hx Sleep apnea; staff checked o2 sat while sleeipng- 89 % for clif a sec- on 1 liter o2 by NC. will get ABG , bipap at night - WBC trended down - remove Hemovac - no new issues last night per staff Respiratory: no complaints Cardiovascular: no complaints Gastrointestinal: no complaints Genitourinary: no complaints Musculoskeletal: back pain Exam/Review of Systems Vital Signs Vitals Vital Signs Date Time Temp Pulse Resp B/P Pulse Ox O2 Delivery O2 Flow Rate FiO2 09/10/17 14:00 98.0 98 19 120/89 95 09/08/17 05:00 Nasal Cannula 2.0 Intake and Output 09/09/17 09/09/17 09/10/17 15:00 23:00 07:00 Intake Total 625 ml 1160 ml 1200 ml Output Total 1540 ml 1180 ml Balance 625 ml -380 ml 20 ml Results Result Diagram: 09/09/17 0343 09/09/17 0343 Results 24 hrs Laboratory Tests Test 09/09/17 20:13 09/10/17 08:55 09/10/17 12:42 Bedside Glucose 129 146 193 Medications Medications Current Medications Ondansetron HCl 4 mg 4 mg Q6H PRN IV NAUSEA AND/OR VOMITING; Start 09/07/17 at 13:00 Lactated Ringer's (Lr) 1,000 ml @ 125 mls/hr Q8H IV Last administered on 23:23; Admin Dose 125 MLS/HR; Start 09/07/17 at 15:00 Morphine Sulfate (morphine) 2 mg Q2H PRN IV severe pain Last administered on 05:56; Admin Dose 2 MG; Start 09/07/17 at 13:00 Acetaminophen/ Hydrocodone Bitart ([place] (10/325)) 1 tab Q4H PRN PO PAIN Last administered on 09/10/17 14:36; Admin Dose 1 TAB; Start 09/07/17 at 13:00 Naloxone HCl (Narcan) 0.2 mg PRN PRN IV DECREASED REPIRATORY RATE; Start 09/07 at 16:00 Atorvastatin Calcium (Lipitor) 20 mg HS PO Last administered on 09/09/17 19:47 ; Admin Dose 20 MG; Start 09/07/17 at 21:00 Divalproex Sodium (Depakote) 1,000 mg BID PO Last administered on 09/10/17 08: 20; Admin Dose 1,000 MG; Start 09/07/17 at 21:00 Oxcarbazepine (Trileptal) 600 mg BID PO Last administered on 09/10/17 08:19; Admin Dose 600 MG; Start 09/07/17 at 21:00 Diagnostic Test (Pha) (Accu-Chek) 1 ea 02 XX Last administered on 09/08/17 01: 21; Admin Dose 1 EA; Start 09/08/17 at 02:00 Insulin Glargine (Lantus) 10 unit DAILY@20 SC Last administered on 09/09/17 20 :16; Admin Dose 10 UNIT; Start 09/07/17 at 20:30 Miscellaneous Information 1 ea NOTE XX ; Start 09/07/17 at 19:30 Glucose (Glutose) 15 gm Q15M PRN PO DECREASED GLUCOSE; Start 09/07/17 at 19:30 Glucose (Glutose) 22.5 gm Q15M PRN PO DECREASED GLUCOSE; Start 09/07/17 at 19: 30 Dextrose (D50w Syringe) 25 ml Q15M PRN IV DECREASED GLUCOSE; Start 09/07/17 at 19:30 Dextrose (D50w Syringe) 50 ml Q15M PRN IV DECREASED GLUCOSE; Start 09/07/17 at 19:30 Glucagon (Glucagen) 1 mg Q15M PRN IM DECREASED GLUCOSE; Start 09/07/17 at 19: 30 Glucose (Glutose) 15 gm Q15M PRN BUCCAL DECREASED GLUCOSE; Start 09/07/17 at 19:30 Linagliptin (Tradjenta) 5 mg DAILY PO Last administered on 09/10/17 08:19; Admin Dose 5 MG; Start 09/08/17 at 09:00 Cyclobenzaprine HCl (Flexeril) 10 mg TID PO Last administered on 09/10/17 12: 20; Admin Dose 10 MG; Start 09/09/17 at 13:00 PATRICE YWATT Sep 10, 2017 18:02
[2017-09-10 19:12] LABS: AADO2 Arterial 64.2 mmHg (7.0-24.0); Allen Test ACCEPTAB; Arterial Base Excess 3.7 mmol/L (-3.0-3); Arterial COHb 0.4 % (0.0-3.0); Arterial Fraction of Oxyhgb 96.6 % (93.0-99.0); Arterial HCO3 27.6 mmol/L (22.0-26.0); Arterial MetHb 0.2 % (0.0-1.5); MODE NASAL CANNULA
[2017-09-10 20:25] VITALS: BP 138/88; RESP 18
[2017-09-10] MEDS: INSULIN GLARGINE [LANtus] 3 ML PEN SC SCH (20:42)
[2017-09-10] MEDS: ATORVASTATIN 20 MG TAB PO SCH (20:43)
[2017-09-10 22:56] VITALS: PULSE 101
[2017-09-11 01:50] VITALS: BP 128/80; RESP 18
[2017-09-11] MEDS: ACCU-CHEK XX SCH (02:00)
[2017-09-11 05:37] LABS: BASOPHILS % 0.3 % (0.0-2.0); EOSINOPHILS # 0.1 10^3/ul (0.0-0.5); EOSINOPHILS % 0.7 % (0.0-7.0); HEMATOCRIT 34.1 % (42.0-52.0); HEMOGLOBIN 11.6 g/dl (14.0-18.0); LYMPHOCYTES % 16.4 % (15.0-51.0); MEAN CORPUSCULAR HEMOGLOBIN 28.8 pg (29.0-33.0); MEAN CORPUSCULAR VOLUME 84.6 fl (82.0-101.0); MEAN PLATELET VOLUME 10.5 fl (7.4-10.4); MONOCYTE # 1.1 10^3/ul (0.3-0.9); MONOCYTES % 8.8 % (0.0-11.0); NEUTROPHILS % 72.4 % (39.0-77.0); PLATELET COUNT 282 10^3/UL (140-415); RED BLOOD COUNT 4.03 10^6/ul (4.70-6.10); RED CELL DISTRIBUTION WIDTH 12.4 % (11.5-14.5); WHITE BLOOD COUNT 12.4 10^3/ul (4.8-10.8)
[2017-09-11 06:02] LABS: CALCIUM 8.5 mg/dl (8.4-10.2); CREATININE 0.72 mg/dl (0.61-1.24); POTASSIUM 3.9 mmol/L (3.5-5.1)
[2017-09-11] MEDS: LACTATED RINGER'S 1,000 ML IV SCH ×3 (07:00→23:00)
[2017-09-11 08:04] VITALS: BP 134/79; RESP 18
[2017-09-11] MEDS: DOCUSATE SODIUM 100 MG CAP PO SCH (08:17)
[2017-09-11] MEDS: metFORMIN 500 MG TAB PO SCH ×2 (08:17→17:50)
[2017-09-11] MEDS: DIVALPROEX (EC) 500 MG TAB PO SCH ×2 (08:17→20:25)
[2017-09-11] MEDS: LINAGLIPTIN 5 MG TABLET PO SCH (08:18)
[2017-09-11] MEDS: OXCARBAZEPINE 300 MG TAB PO SCH ×2 (08:18→20:25)
[2017-09-11] MEDS: CYCLOBENZAPRINE 10 MG TAB PO SCH ×3 (08:18→20:25)
[2017-09-11] MEDS: INSULIN ASPART [NOVOLOG] 3 ML PEN SC SCH ×4 (08:49→20:25)
--- NOTE | 2017-09-11 10:49 | CONS ---
Date/Time of Note Date/Time of Note DATE: 09/11/17 TIME: 10:43 Assessment/Plan Assessment/Plan Additional Assessment/Plan ABG was reviewed from yesterday which is within normal limits. Assessment and recommendations; 1. Patient admitted with back pain status post lumbar laminectomy. 2. History of underlying sleep apnea, patient however unable to handle any noninvasive positive pressure ventilation device due to being uncomfortable. 3. History of hypertension, diabetes and stable seizure disorder. 4. Mild hypoxemia. 5. Shortness of breath likely from chest wall splinting. Obtain a chest x-ray. Once x-ray is done I will review it and make further recommendations. Add incentive spirometer at bedside. Meanwhile continue current supportive care. Consultation Date/Type/Reason Admit Date/Time Sep 07, 2017 at 09:59 Date of Consultation: Sep 11, 2017 Type of Consultation: Pulmonary Reason for Consultation Pulmonary consultation requested for evaluation of shortness of breath. Next History of presenting illness; patient is a 41-year-old male who was admitted with complaints of low back pain which has been a chronic complaint. Patient underwent uneventful lumbar laminectomy. Patient for the last day or so has been complaining of dyspnea on exertion. He denies any chest pain, fever, chills. Any sputum production or wheezing. Past medical history; 1. Patient with a history of hypertension, diabetes, seizures and obstructive sleep apnea. Patient however has been unable to use BiPAP at home due to being uncomfortable with the device. Medications; reviewed. Allergies; penicillin. Next Social history; patient never smoked no history of alcohol or drug abuse. Family history; patient is he does not have any children. Occupation history; patient is on disability. Review of systems; denies any headache, seizures, denies any visual changes. Any sinus symptoms. Denies any chest pain, wheezing, cough, hemoptysis or sputum production. Denies any abdominal pain, nausea, vomiting. Complains of mild low back pain. Denies any orthopnea. Does complain of dyspnea on exertion. Denies any leg pain. Denies any melena or hematochezia. General exam; young male, awake alert, currently in no distress. Past Medical History Medical History: diabetes, hypertension, hyperthyroid, other (Seizure disorder) Social History Alcohol Use: none Smoking Status: Never smoker Drug Use: none Exam/Review of Systems Vital Signs Vitals Vital Signs Date Time Temp Pulse Resp B/P Pulse Ox O2 Delivery O2 Flow Rate FiO2 09/11/17 08:04 98.2 94 18 134/79 99 09/11/17 07:36 Nasal Cannula 1.0 09/10/17 22:56 35 Intake and Output 09/10/17 09/10/17 09/11/17 14:59 22:59 06:59 Intake Total 1200 ml 1100 ml Output Total 1010 ml 1220 ml Balance 190 ml -120 ml Exam HEENT exam; supple neck, no JVD. No lymphadenopathy. Midline trachea. No thyromegaly. Pharynx is clear. Patient has fair dentition. Pupils are midsize and reactive to light. Chest exam; diminished but clear breath sounds. S1-S2 audible, no murmurs. Regular rhythm. Abdomen exam; soft, abdominal binder is in place. Bowel sounds audible. Extremity exam; no edema. Pulses 1+ bilaterally. No clubbing. DISTRIBUTION DRIVER exam; no focal deficit. Results Result Diagram: 09/11/17 0448 09/11/17 0448 Results 24 hrs Laboratory Tests Test 09/10/17 12:42 09/10/17 17:54 09/10/17 18:30 09/10/17 20:40 Bedside Glucose 193 129 126 Blood Gas Specimen Source Blood arterial Arterial Blood Date Drawn 09/10/2017 7:00:31 PM Arterial Blood pH (Temp corrected) 7.466 H Arterial Blood pCO2 (Temp correct) 39.2 Arterial Blood pO2 (Temp corrected) 89.2 Arterial Blood HCO3 27.6 H Arterial Blood Base Excess 3.7 H Arterial Blood Oxygen Saturation 97.2 Alejandro Test ACCEPTAB Arterial Blood Gas Puncture Site Left Radial Arterial Blood Carboxyhemoglobin 0.4 Arterial Blood Methemoglobin 0.2 Blood Gas A-a O2 Differential 64.2 H Oxyhemoglobin Percent 96.6 Total Hemoglobin 13.0 Blood Gas Temperature 37.0 Blood Gas Modality NASAL CANNULA FiO2 28.0 Blood Gas Notified Whom MA Blood Gas Notified Time 09/10/2017 7:12:05 PM Test 09/11/17 02:01 09/11/17 04:48 09/11/17 08:42 Bedside Glucose 168 201 White Blood Count 12.4 H Red Blood Count 4.03 L Hemoglobin 11.6 L Hematocrit 34.1 L Mean Corpuscular Volume 84.6 Mean Corpuscular Hemoglobin 28.8 L Mean Corpuscular Hemoglobin Concent 34.0 Red Cell Distribution Width 12.4 Platelet Count 282 # Mean Platelet Volume 10.5 H Neutrophils % 72.4 Lymphocytes % 16.4 Monocytes % 8.8 Eosinophils % 0.7 Basophils % 0.3 Nucleated Red Blood Cells % 0.0 Neutrophils # 9.0 H Lymphocytes # 2.0 Monocytes # 1.1 H Eosinophils # 0.1 Basophils # 0.0 Nucleated Red Blood Cells # 0.0 Sodium Level 135 Potassium Level 3.9 Chloride Level 96 L Carbon Dioxide Level 29 Anion Gap 14 Blood Urea Nitrogen 14 Creatinine 0.72 Glucose Level 155 Calcium Level 8.5 Medications Medications Current Medications Ondansetron HCl 4 mg 4 mg Q6H PRN IV NAUSEA AND/OR VOMITING; Start 09/07/17 at 13:00 Lactated Ringer's (Lr) 1,000 ml @ 125 mls/hr Q8H IV Last administered on 23:23; Admin Dose 125 MLS/HR; Start 09/07/17 at 15:00 Morphine Sulfate (morphine) 2 mg Q2H PRN IV severe pain Last administered on 05:56; Admin Dose 2 MG; Start 09/07/17 at 13:00 Acetaminophen/ Hydrocodone Bitart ([place] (10/325)) 1 tab Q4H PRN PO PAIN Last administered on 09/10/17 14:36; Admin Dose 1 TAB; Start 09/07/17 at 13:00 Naloxone HCl (Narcan) 0.2 mg PRN PRN IV DECREASED REPIRATORY RATE; Start 09/07 at 16:00 Atorvastatin Calcium (Lipitor) 20 mg HS PO Last administered on 09/10/17 20:43 ; Admin Dose 20 MG; Start 09/07/17 at 21:00 Divalproex Sodium (Depakote) 1,000 mg BID PO Last administered on 09/11/17 08: 17; Admin Dose 1,000 MG; Start 09/07/17 at 21:00 Oxcarbazepine (Trileptal) 600 mg BID PO Last administered on 09/11/17 08:18; Admin Dose 600 MG; Start 09/07/17 at 21:00 Diagnostic Test (Pha) (Accu-Chek) 1 ea 02 XX Last administered on 09/08/17 01: 21; Admin Dose 1 EA; Start 09/08/17 at 02:00 Insulin Glargine (Lantus) 10 unit DAILY@20 SC Last administered on 09/10/17 20 :42; Admin Dose 10 UNIT; Start 09/07/17 at 20:30 Miscellaneous Information 1 ea NOTE XX ; Start 09/07/17 at 19:30 Glucose (Glutose) 15 gm Q15M PRN PO DECREASED GLUCOSE; Start 09/07/17 at 19:30 Glucose (Glutose) 22.5 gm Q15M PRN PO DECREASED GLUCOSE; Start 09/07/17 at 19: 30 Dextrose (D50w Syringe) 25 ml Q15M PRN IV DECREASED GLUCOSE; Start 09/07/17 at 19:30 Dextrose (D50w Syringe) 50 ml Q15M PRN IV DECREASED GLUCOSE; Start 09/07/17 at 19:30 Glucagon (Glucagen) 1 mg Q15M PRN IM DECREASED GLUCOSE; Start 09/07/17 at 19: 30 Glucose (Glutose) 15 gm Q15M PRN BUCCAL DECREASED GLUCOSE; Start 09/07/17 at 19:30 Linagliptin (Tradjenta) 5 mg DAILY PO Last administered on 09/11/17 08:18; Admin Dose 5 MG; Start 09/08/17 at 09:00 Cyclobenzaprine HCl (Flexeril) 10 mg TID PO Last administered on 09/11/17 08: 18; Admin Dose 10 MG; Start 09/09/17 at 13:00 Docusate Sodium (Colace) 100 mg DAILY PO Last administered on 09/11/17 08:17; Admin Dose 100 MG; Start 09/11/17 at 09:00 Magnesium Hydroxide (Milk Of Mag) 30 ml DAILY PRN PO CONSTIPATION Last administered on 09/11/17 05:06; Admin Dose 30 ML; Start 09/10/17 at 18:00 JESSEE DILLARD Sep 11, 2017 10:49
--- NOTE | 2017-09-11 13:40 | RADRPT ---
PROCEDURE: Chest x-ray CLINICAL INDICATION: Shortness of breath TECHNIQUE: Chest single view COMPARISON: 08/09/2017 FINDINGS: The heart is normal in size. The pulmonary vessels are normal in caliber. The lungs are clear. Th e costophrenic angles are sharp. The visualized bony thorax is unremarkable. IMPRESSION: No acute cardiopulmonary disease. RPTAT: HH .Rigoberto Bean MD, Date Time Electronically viewed and signed by .Rigoberto Bean MD, MD on 09/11/2017 13:40 .W/
[2017-09-11] MEDS: HYDROCODONE/APAP (10/325) TAB PO PRN (14:42)
--- NOTE | 2017-09-11 15:07 | PN ---
Date/Time of Note Date/Time of Note DATE: 09/11/17 TIME: 14:58 Assessment/Plan VTE Prophylaxis VTE Prophylaxis Intervention: SCD's Lines/Catheters IV [facility]ter [facility]from [facility] Saline Lock Urinary Cath still in place: No Assessment/Plan Chief Complaint/Hosp Course Patient is undergoing evaluation for episode of hypoxemia with Dr. Benavides in pulmonology consultation, patient has a history of sleep apnea however does not tolerate CPAP at night. Currently patient is comfortable denies any shortness of breath, continues to have physical therapy. Acute rehab evaluation. Assessment/Plan -Lumbar spondylosis with mechanical low back pain and leg pain, status post L4- L5 and sacral laminectomy with posterolateral fusion and pedicle screw instrumentation by Dr. Diaz on 09/07. Continue physical therapy. -Hypertension -Hyperlipidemia -Diabetes, continue Tradjenta, Lantus, and NovoLog -Seizure disorder, continue Depakote Further recommendations based on clinical course. Plan of care discussed with Dr. Mills. Problems: Exam/Review of Systems Vital Signs Vitals Vital Signs Date Time Temp Pulse Resp B/P Pulse Ox O2 Delivery O2 Flow Rate FiO2 09/11/17 08:04 98.2 94 18 134/79 99 09/11/17 07:36 Nasal Cannula 1.0 09/10/17 22:56 35 Intake and Output 09/10/17 09/10/17 09/11/17 15:00 23:00 07:00 Intake Total 1200 ml 1100 ml Output Total 1010 ml 1220 ml Balance 190 ml -120 ml Exam Constitutional: alert, oriented Respiratory: normal air movement Cardiovascular: nl pulses Gastrointestinal: non-tender, soft Musculoskeletal: nl extremities to inspection, other (Status post back surgery) Neurological: nl mental status Results Result Diagram: 09/11/17 0448 09/11/17 0448 Results 24 hrs Laboratory Tests Test 09/10/17 17:54 09/10/17 18:30 09/10/17 20:40 09/11/17 02:01 Bedside Glucose 129 126 168 Blood Gas Specimen Source Blood arterial Arterial Blood Date Drawn 09/10/2017 7:00:31 PM Arterial Blood pH (Temp corrected) 7.466 H Arterial Blood pCO2 (Temp correct) 39.2 Arterial Blood pO2 (Temp corrected) 89.2 Arterial Blood HCO3 27.6 H Arterial Blood Base Excess 3.7 H Arterial Blood Oxygen Saturation 97.2 Alejandro Test ACCEPTAB Arterial Blood Gas Puncture Site Left Radial Arterial Blood Carboxyhemoglobin 0.4 Arterial Blood Methemoglobin 0.2 Blood Gas A-a O2 Differential 64.2 H Oxyhemoglobin Percent 96.6 Total Hemoglobin 13.0 Blood Gas Temperature 37.0 Blood Gas Modality NASAL CANNULA FiO2 28.0 Blood Gas Notified Whom MA Blood Gas Notified Time 09/10/2017 7:12:05 PM Test 09/11/17 04:48 09/11/17 08:42 09/11/17 12:30 White Blood Count 12.4 H Red Blood Count 4.03 L Hemoglobin 11.6 L Hematocrit 34.1 L Mean Corpuscular Volume 84.6 Mean Corpuscular Hemoglobin 28.8 L Mean Corpuscular Hemoglobin Concent 34.0 Red Cell Distribution Width 12.4 Platelet Count 282 # Mean Platelet Volume 10.5 H Neutrophils % 72.4 Lymphocytes % 16.4 Monocytes % 8.8 Eosinophils % 0.7 Basophils % 0.3 Nucleated Red Blood Cells % 0.0 Neutrophils # 9.0 H Lymphocytes # 2.0 Monocytes # 1.1 H Eosinophils # 0.1 Basophils # 0.0 Nucleated Red Blood Cells # 0.0 Sodium Level 135 Potassium Level 3.9 Chloride Level 96 L Carbon Dioxide Level 29 Anion Gap 14 Blood Urea Nitrogen 14 Creatinine 0.72 Glucose Level 155 Calcium Level 8.5 Bedside Glucose 201 147 Medications Medications Current Medications Ondansetron HCl 4 mg 4 mg Q6H PRN IV NAUSEA AND/OR VOMITING; Start 09/07/17 at 13:00 Lactated Ringer's (Lr) 1,000 ml @ 125 mls/hr Q8H IV Last administered on 23:23; Admin Dose 125 MLS/HR; Start 09/07/17 at 15:00 Morphine Sulfate (morphine) 2 mg Q2H PRN IV severe pain Last administered on 05:56; Admin Dose 2 MG; Start 09/07/17 at 13:00 Acetaminophen/ Hydrocodone Bitart ([place] (10/325)) 1 tab Q4H PRN PO PAIN Last administered on 09/11/17 14:42; Admin Dose 1 TAB; Start 09/07/17 at 13:00 Naloxone HCl (Narcan) 0.2 mg PRN PRN IV DECREASED REPIRATORY RATE; Start 09/07 at 16:00 Atorvastatin Calcium (Lipitor) 20 mg HS PO Last administered on 09/10/17 20:43 ; Admin Dose 20 MG; Start 09/07/17 at 21:00 Divalproex Sodium (Depakote) 1,000 mg BID PO Last administered on 09/11/17 08: 17; Admin Dose 1,000 MG; Start 09/07/17 at 21:00 Oxcarbazepine (Trileptal) 600 mg BID PO Last administered on 09/11/17 08:18; Admin Dose 600 MG; Start 09/07/17 at 21:00 Diagnostic Test (Pha) (Accu-Chek) 1 ea 02 XX Last administered on 09/08/17 01: 21; Admin Dose 1 EA; Start 09/08/17 at 02:00 Insulin Glargine (Lantus) 10 unit DAILY@20 SC Last administered on 09/10/17 20 :42; Admin Dose 10 UNIT; Start 09/07/17 at 20:30 Miscellaneous Information 1 ea NOTE XX ; Start 09/07/17 at 19:30 Glucose (Glutose) 15 gm Q15M PRN PO DECREASED GLUCOSE; Start 09/07/17 at 19:30 Glucose (Glutose) 22.5 gm Q15M PRN PO DECREASED GLUCOSE; Start 09/07/17 at 19: 30 Dextrose (D50w Syringe) 25 ml Q15M PRN IV DECREASED GLUCOSE; Start 09/07/17 at 19:30 Dextrose (D50w Syringe) 50 ml Q15M PRN IV DECREASED GLUCOSE; Start 09/07/17 at 19:30 Glucagon (Glucagen) 1 mg Q15M PRN IM DECREASED GLUCOSE; Start 09/07/17 at 19: 30 Glucose (Glutose) 15 gm Q15M PRN BUCCAL DECREASED GLUCOSE; Start 09/07/17 at 19:30 Linagliptin (Tradjenta) 5 mg DAILY PO Last administered on 09/11/17 08:18; Admin Dose 5 MG; Start 09/08/17 at 09:00 Cyclobenzaprine HCl (Flexeril) 10 mg TID PO Last administered on 09/11/17 13: 07; Admin Dose 10 MG; Start 09/09/17 at 13:00 Docusate Sodium (Colace) 100 mg DAILY PO Last administered on 09/11/17 08:17; Admin Dose 100 MG; Start 09/11/17 at 09:00 Magnesium Hydroxide (Milk Of Mag) 30 ml DAILY PRN PO CONSTIPATION Last administered on 09/11/17 05:06; Admin Dose 30 ML; Start 09/10/17 at 18:00 ELINOR RODARTE Sep 11, 2017 15:06
[2017-09-11 15:26] VITALS: BP 123/80; RESP 18
[2017-09-11 19:42] VITALS: BP 133/81; RESP 18
[2017-09-11] MEDS: ATORVASTATIN 20 MG TAB PO SCH (20:25)
[2017-09-11] MEDS: INSULIN GLARGINE [LANtus] 3 ML PEN SC SCH (20:26)
[2017-09-12 01:28] VITALS: BP 130/90; RESP 18
[2017-09-12] MEDS: ACCU-CHEK XX SCH (02:00)
[2017-09-12] MEDS: LACTATED RINGER'S 1,000 ML IV SCH ×2 (05:42→09:03)
[2017-09-12 06:01] LABS: BASOPHIL # 0.1 10^3/ul (0.0-0.1); BASOPHILS % 0.6 % (0.0-2.0); EOSINOPHILS # 0.2 10^3/ul (0.0-0.5); HEMATOCRIT 32.8 % (42.0-52.0); HEMOGLOBIN 11.4 g/dl (14.0-18.0); LYMPHOCYTES % 18.7 % (15.0-51.0); MEAN CORPUSCULAR HEMOGLOBIN 29.5 pg (29.0-33.0); MEAN CORPUSCULAR HGB CONC 34.8 g/dl (32.0-37.0); MEAN CORPUSCULAR VOLUME 84.8 fl (82.0-101.0); MEAN PLATELET VOLUME 10.1 fl (7.4-10.4); MONOCYTE # 1.1 10^3/ul (0.3-0.9); MONOCYTES % 10.4 % (0.0-11.0); NEUTROPHIL # 6.9 10^3/ul (1.6-7.5); NEUTROPHILS % 65.8 % (39.0-77.0); PLATELET COUNT 285 10^3/UL (140-415); RED BLOOD COUNT 3.87 10^6/ul (4.70-6.10); RED CELL DISTRIBUTION WIDTH 12.6 % (11.5-14.5); WHITE BLOOD COUNT 10.4 10^3/ul (4.8-10.8)
[2017-09-12 06:53] LABS: CALCIUM 8.6 mg/dl (8.4-10.2); CREATININE 0.76 mg/dl (0.61-1.24); POTASSIUM 3.4 mmol/L (3.5-5.1)
[2017-09-12 07:55] VITALS: BP 122/82; RESP 20
[2017-09-12] MEDS: metFORMIN 500 MG TAB PO SCH ×2 (09:12→17:50)
[2017-09-12] MEDS: CYCLOBENZAPRINE 10 MG TAB PO SCH ×3 (09:12→20:08)
[2017-09-12] MEDS: LINAGLIPTIN 5 MG TABLET PO SCH (09:13)
[2017-09-12] MEDS: DOCUSATE SODIUM 100 MG CAP PO SCH (09:13)
[2017-09-12] MEDS: OXCARBAZEPINE 300 MG TAB PO SCH ×2 (09:13→20:08)
[2017-09-12] MEDS: DIVALPROEX (EC) 500 MG TAB PO SCH ×2 (09:13→20:07)
[2017-09-12] MEDS: INSULIN ASPART [NOVOLOG] 3 ML PEN SC SCH ×4 (09:22→20:11)
--- NOTE | 2017-09-12 11:51 | CONS ---
Date/Time of Note Date/Time of Note DATE: 09/12/17 TIME: 11:49 Assessment/Plan Assessment/Plan Additional Assessment/Plan Chest x-ray was reviewed from yesterday afternoon which is totally clear. Assessment and recommendations; 1. Patient admitted with lumbar pain status post lumbar laminectomy then developed shortness of breath postprocedure which is combination of underlying sleep apnea versus some element of chest wall splinting from pain. There has been significant clinical improvement over the last 24 hours. 2. History of diabetes, hypertension and seizure disorder. Continue current treatment. Consultation Date/Type/Reason Admit Date/Time Sep 07, 2017 at 09:59 Initial Consult Date 09/11/17 Type of Consultation: Pulmonary 24 HR Interval Summary Free Text/Dictation Patient's condition is stable. Denies any shortness of breath. Any chest pain. General exam; young male, awake and alert. Currently in no distress. Exam/Review of Systems Vital Signs Vitals Vital Signs Date Time Temp Pulse Resp B/P Pulse Ox O2 Delivery O2 Flow Rate FiO2 09/12/17 07:55 98.1 87 20 122/82 96 09/12/17 05:43 2.0 09/11/17 23:43 Nasal Cannula 09/10/17 22:56 35 Intake and Output 09/11/17 09/11/17 09/12/17 14:59 22:59 06:59 Intake Total 480 ml 1000 ml Output Total 800 ml 1100 ml Balance -320 ml -100 ml Exam HEENT exam; supple neck, no JVD. No lymphadenopathy. Midline trachea. No thyromegaly. Patient has fair dentition. Chest exam; clear to auscultation. S1-S2 audible, no murmurs. Regular rhythm. Abdomen exam; soft, nontender. No organomegaly. Bowel sounds audible. Mildly protuberant. Back examination; dressing applied over lumbar area. Extremity exam; no edema. AUTOMATION QA TESTER exam; no focal deficit. Results Result Diagram: 09/12/17 0451 09/12/17 0452 Results 24 hrs Laboratory Tests Test 09/11/17 12:30 09/11/17 17:29 09/11/17 20:24 09/12/17 02:03 Bedside Glucose 147 137 129 143 Test 09/12/17 04:51 09/12/17 04:52 09/12/17 08:31 White Blood Count 10.4 Red Blood Count 3.87 L Hemoglobin 11.4 L Hematocrit 32.8 L Mean Corpuscular Volume 84.8 Mean Corpuscular Hemoglobin 29.5 Mean Corpuscular Hemoglobin Concent 34.8 Red Cell Distribution Width 12.6 Platelet Count 285 Mean Platelet Volume 10.1 Neutrophils % 65.8 Lymphocytes % 18.7 Monocytes % 10.4 Eosinophils % 2.0 Basophils % 0.6 Nucleated Red Blood Cells % 0.0 Neutrophils # 6.9 Lymphocytes # 2.0 Monocytes # 1.1 H Eosinophils # 0.2 Basophils # 0.1 Nucleated Red Blood Cells # 0.0 Sodium Level 136 Potassium Level 3.4 L Chloride Level 96 L Carbon Dioxide Level 31 Anion Gap 12 Blood Urea Nitrogen 15 Creatinine 0.76 Glucose Level 137 Calcium Level 8.6 Bedside Glucose 159 Medications Medications Current Medications Ondansetron HCl 4 mg 4 mg Q6H PRN IV NAUSEA AND/OR VOMITING; Start 09/07/17 at 13:00 Lactated Ringer's (Lr) 1,000 ml @ 125 mls/hr Q8H IV Last administered on 23:23; Admin Dose 125 MLS/HR; Start 09/07/17 at 15:00 Morphine Sulfate (morphine) 2 mg Q2H PRN IV severe pain Last administered on 05:56; Admin Dose 2 MG; Start 09/07/17 at 13:00 Acetaminophen/ Hydrocodone Bitart ([place] (10/325)) 1 tab Q4H PRN PO PAIN Last administered on 09/11/17 14:42; Admin Dose 1 TAB; Start 09/07/17 at 13:00 Naloxone HCl (Narcan) 0.2 mg PRN PRN IV DECREASED REPIRATORY RATE; Start 09/07 at 16:00 Atorvastatin Calcium (Lipitor) 20 mg HS PO Last administered on 09/11/17 20:25 ; Admin Dose 20 MG; Start 09/07/17 at 21:00 Divalproex Sodium (Depakote) 1,000 mg BID PO Last administered on 09/12/17 09: 13; Admin Dose 1,000 MG; Start 09/07/17 at 21:00 Oxcarbazepine (Trileptal) 600 mg BID PO Last administered on 09/12/17 09:13; Admin Dose 600 MG; Start 09/07/17 at 21:00 Diagnostic Test (Pha) (Accu-Chek) 1 ea 02 XX Last administered on 09/08/17 01: 21; Admin Dose 1 EA; Start 09/08/17 at 02:00 Insulin Glargine (Lantus) 10 unit DAILY@20 SC Last administered on 09/11/17 20 :26; Admin Dose 10 UNIT; Start 09/07/17 at 20:30 Miscellaneous Information 1 ea NOTE XX ; Start 09/07/17 at 19:30 Glucose (Glutose) 15 gm Q15M PRN PO DECREASED GLUCOSE; Start 09/07/17 at 19:30 Glucose (Glutose) 22.5 gm Q15M PRN PO DECREASED GLUCOSE; Start 09/07/17 at 19: 30 Dextrose (D50w Syringe) 25 ml Q15M PRN IV DECREASED GLUCOSE; Start 09/07/17 at 19:30 Dextrose (D50w Syringe) 50 ml Q15M PRN IV DECREASED GLUCOSE; Start 09/07/17 at 19:30 Glucagon (Glucagen) 1 mg Q15M PRN IM DECREASED GLUCOSE; Start 09/07/17 at 19: 30 Glucose (Glutose) 15 gm Q15M PRN BUCCAL DECREASED GLUCOSE; Start 09/07/17 at 19:30 Linagliptin (Tradjenta) 5 mg DAILY PO Last administered on 09/12/17 09:13; Admin Dose 5 MG; Start 09/08/17 at 09:00 Cyclobenzaprine HCl (Flexeril) 10 mg TID PO Last administered on 09/12/17 09: 12; Admin Dose 10 MG; Start 09/09/17 at 13:00 Docusate Sodium (Colace) 100 mg DAILY PO Last administered on 09/12/17 09:13; Admin Dose 100 MG; Start 09/11/17 at 09:00 Magnesium Hydroxide (Milk Of Mag) 30 ml DAILY PRN PO CONSTIPATION Last administered on 09/11/17 05:06; Admin Dose 30 ML; Start 09/10/17 at 18:00 JESSEE DILLARD Sep 12, 2017 11:51
--- NOTE | 2017-09-12 14:08 | PN ---
Date/Time of Note Date/Time of Note DATE: 09/12/17 TIME: 14:07 Assessment/Plan VTE Prophylaxis VTE Prophylaxis Intervention: SCD's Lines/Catheters IV Catheter Type (from Nrs): Saline Lock Urinary Cath still in place: No Assessment/Plan Chief Complaint/Hosp Course Patient stated that he feels better, blood sugar is stable, continue PT, pending authorization for acute rehab. Assessment/Plan -Lumbar spondylosis with mechanical low back pain and leg pain, status post L4- L5 and sacral laminectomy with posterolateral fusion and pedicle screw instrumentation by Dr. Diaz on 09/07. Continue physical therapy. -Hypertension -Hyperlipidemia -Diabetes, continue Tradjenta, Lantus, and NovoLog -Seizure disorder, continue Depakote Further recommendations based on clinical course. Plan of care discussed with Dr. Mills. Problems: Exam/Review of Systems Vital Signs Vitals Vital Signs Date Time Temp Pulse Resp B/P Pulse Ox O2 Delivery O2 Flow Rate FiO2 09/12/17 07:55 98.1 87 20 122/82 96 09/12/17 05:43 2.0 09/11/17 23:43 Nasal Cannula 09/10/17 22:56 35 Intake and Output 09/11/17 09/11/17 09/12/17 14:59 22:59 06:59 Intake Total 480 ml 1000 ml Output Total 800 ml 1100 ml Balance -320 ml -100 ml Exam Constitutional: alert, oriented Respiratory: normal air movement Cardiovascular: nl pulses Gastrointestinal: non-tender, soft Musculoskeletal: nl extremities to inspection, other (Status post back surgery) Neurological: nl mental status Results Result Diagram: 09/12/17 0451 09/12/17 0452 Results 24 hrs Laboratory Tests Test 09/11/17 17:29 09/11/17 20:24 09/12/17 02:03 09/12/17 04:51 Bedside Glucose 137 129 143 White Blood Count 10.4 Red Blood Count 3.87 L Hemoglobin 11.4 L Hematocrit 32.8 L Mean Corpuscular Volume 84.8 Mean Corpuscular Hemoglobin 29.5 Mean Corpuscular Hemoglobin Concent 34.8 Red Cell Distribution Width 12.6 Platelet Count 285 Mean Platelet Volume 10.1 Neutrophils % 65.8 Lymphocytes % 18.7 Monocytes % 10.4 Eosinophils % 2.0 Basophils % 0.6 Nucleated Red Blood Cells % 0.0 Neutrophils # 6.9 Lymphocytes # 2.0 Monocytes # 1.1 H Eosinophils # 0.2 Basophils # 0.1 Nucleated Red Blood Cells # 0.0 Test 09/12/17 04:52 09/12/17 08:31 09/12/17 12:26 Sodium Level 136 Potassium Level 3.4 L Chloride Level 96 L Carbon Dioxide Level 31 Anion Gap 12 Blood Urea Nitrogen 15 Creatinine 0.76 Glucose Level 137 Calcium Level 8.6 Bedside Glucose 159 138 Medications Medications Current Medications Ondansetron HCl 4 mg 4 mg Q6H PRN IV NAUSEA AND/OR VOMITING; Start 09/07/17 at 13:00 Lactated Ringer's (Lr) 1,000 ml @ 125 mls/hr Q8H IV Last administered on 23:23; Admin Dose 125 MLS/HR; Start 09/07/17 at 15:00 Morphine Sulfate (morphine) 2 mg Q2H PRN IV severe pain Last administered on 05:56; Admin Dose 2 MG; Start 09/07/17 at 13:00 Acetaminophen/ Hydrocodone Bitart ([place] (10/325)) 1 tab Q4H PRN PO PAIN Last administered on 09/11/17 14:42; Admin Dose 1 TAB; Start 09/07/17 at 13:00 Naloxone HCl (Narcan) 0.2 mg PRN PRN IV DECREASED REPIRATORY RATE; Start 09/07 at 16:00 Atorvastatin Calcium (Lipitor) 20 mg HS PO Last administered on 09/11/17 20:25 ; Admin Dose 20 MG; Start 09/07/17 at 21:00 Divalproex Sodium (Depakote) 1,000 mg BID PO Last administered on 09/12/17 09: 13; Admin Dose 1,000 MG; Start 09/07/17 at 21:00 Oxcarbazepine (Trileptal) 600 mg BID PO Last administered on 09/12/17 09:13; Admin Dose 600 MG; Start 09/07/17 at 21:00 Diagnostic Test (Pha) (Accu-Chek) 1 ea 02 XX Last administered on 09/08/17 01: 21; Admin Dose 1 EA; Start 09/08/17 at 02:00 Insulin Glargine (Lantus) 10 unit DAILY@20 SC Last administered on 09/11/17 20 :26; Admin Dose 10 UNIT; Start 09/07/17 at 20:30 Miscellaneous Information 1 ea NOTE XX ; Start 09/07/17 at 19:30 Glucose (Glutose) 15 gm Q15M PRN PO DECREASED GLUCOSE; Start 09/07/17 at 19:30 Glucose (Glutose) 22.5 gm Q15M PRN PO DECREASED GLUCOSE; Start 09/07/17 at 19: 30 Dextrose (D50w Syringe) 25 ml Q15M PRN IV DECREASED GLUCOSE; Start 09/07/17 at 19:30 Dextrose (D50w Syringe) 50 ml Q15M PRN IV DECREASED GLUCOSE; Start 09/07/17 at 19:30 Glucagon (Glucagen) 1 mg Q15M PRN IM DECREASED GLUCOSE; Start 09/07/17 at 19: 30 Glucose (Glutose) 15 gm Q15M PRN BUCCAL DECREASED GLUCOSE; Start 09/07/17 at 19:30 Linagliptin (Tradjenta) 5 mg DAILY PO Last administered on 09/12/17 09:13; Admin Dose 5 MG; Start 09/08/17 at 09:00 Cyclobenzaprine HCl (Flexeril) 10 mg TID PO Last administered on 09/12/17 12: 42; Admin Dose 10 MG; Start 09/09/17 at 13:00 Docusate Sodium (Colace) 100 mg DAILY PO Last administered on 09/12/17 09:13; Admin Dose 100 MG; Start 09/11/17 at 09:00 Magnesium Hydroxide (Milk Of Mag) 30 ml DAILY PRN PO CONSTIPATION Last administered on 09/11/17 05:06; Admin Dose 30 ML; Start 09/10/17 at 18:00 ELINOR RODARTE Sep 12, 2017 14:08
[2017-09-12 14:28] VITALS: BP 117/81; RESP 20
[2017-09-12] MEDS ORDERED: POTASSIUM CHLORIDE 20 MEQ POWDER FOR ORAL SOLN PO ONE (14:30)
[2017-09-12 19:09] VITALS: BP 119/69; RESP 19
[2017-09-12 20:00] VITALS: BP 120/70; PULSE 74; RESP 18
[2017-09-12] MEDS: ATORVASTATIN 20 MG TAB PO SCH (20:08)
[2017-09-12] MEDS: HYDROCODONE/APAP (10/325) TAB PO PRN (20:09)
[2017-09-12] MEDS: INSULIN GLARGINE [LANtus] 3 ML PEN SC SCH (20:10)
--- NOTE | 2017-09-18 11:42 | OPR ---
DATE OF OPERATION: 09/07/2017 PREOPERATIVE DIAGNOSES: L4-L5, L5-S1 lumbar spondylosis with spondylolisthesis and mechanical low b ack pain. POSTOPERATIVE DIAGNOSES: L4-L5, L5-S1 lumbar spondylosis with spondylolisthesis and mechanical low back pain. Paraparesis, weakness of bilateral lower extremity. PROCEDURE: 1. L4-L5 posterolateral fusion, CPT 24013. 2. L5-S1 posterolateral fusion, CPT 30837. 3. L4 laminectomy, bilateral with medial facetectomy and foraminotomy, CPT 31889. 4. L5 and S1 bilateral laminectomy, medial facetectomy and foraminotomy, CPT 68675 x2. 5. L4-L5-S1 posterior segmental instrumentation utilizing Synthes pedicle screws, CPT 62754. SURGEON FOR THE OPERATION: Joe LAYER UP: RICK Hussein COMPLICATIONS OF THE OPERATION: None. ANESTHESIA: General endotracheal. ESTIMATED BLOOD LOSS: Less than 200. Needle, sponge counts correct. SPECIMENS: Multiple fragments of the lamina was sent to pathology. INDICATION FOR OPERATION: The patient's is well known to me. He is approximately 41, has bee n complaining of low back pain and leg pain. He has severe spondylosis of L4-L5 and L5-S1. We will proceed with lumbar laminectomy and fusion and instrumentation at L4-L5 and L5-S1 levels. Risks an d benefits of the operation including anesthesia, infection, bleeding, permanent neurological injury and were explained. The patient agreed to proceed with the operation and signed the consent. PROCEDURE IN DETAIL: The patient was placed in supine position. After adequate general anesthesia was obtained, the patient was turned prone on vertical bolsters. Lumbar region was shaved, prepped and draped in normal sterile fashion, infiltrated with lidocaine with epinephrine solution. After i t was prepped and draped in normal sterile fashion, a midline incision was made and carried to the l umbodorsal fascia to the lamina of L4, L5, and S1. Deep retractors were placed and the transverse p rocess of L4-L5 and the ala of the crest at S1was identified. Following this, laminectomy of L4-L5, L5-S1 was carried out. There was severe hypertrophy neural fo raminal stenosis. Decompression of the lamina was done to the pedicle of L4, L5 and S1, identifying the root of L4, L5 and S1. Spinal monitoring showed improvement. Following this, pedicle screws 6 mm x 45 mm were placed at the level of L4, L5 and S1 bilaterally ut ilizing fluoroscopy. Following that, rods of 80 mm were loaded on to the pedicle screws and torque tightened to specification. The bone that was harvested during the laminectomy was morcellized, was mixed with 10 mL of deminera lized bone matrix, was then placed as an onlay graft at L4-L5, L5-S1 level achieving posterolateral fusion. The area was irrigated with bacitracin saline solution. Closure of the wound was done with #1 Vicry l for the lumbodorsal fascia, 2-0 and 3-0 for subcutaneous tissue and dermis after a medium size Hem ovac drain was placed in the epidural space and was exited from the skin through a separate stab inc ision and was secured to the skin with 2-0 nylon sutures. The wound was Steri-Stripped shut. Sterile dressing was applied. The patient was extubated and antonio en to postanesthesia recovery in stable condition, moving all muscle groups of the upper and lower e xtremities. Spinal monitoring showed no loss of signal. Dictated By: BARBARA PRUITT/DIAN Conf#: [id number] DID#: [id number]
== END 2017-09-12 21:45 | DRG 460 ==
LOC: REC 09:59 → EDSTATUS 13:00 → MS1 17:18
PROVIDERS: ADMIT Neurological Surgery; ATTEND Neurological Surgery
PROC: 0SG30Z1 (ICD-10-PCS; 2017-09-07)
PROC: 0SG00Z1 (ICD-10-PCS; principal; 2017-09-07 12:30)
DX: M47.27 Other spondylosis with radiculopathy, lumbosacral region (principal); I10 Essential (primary) hypertension; M43.17 Spondylolisthesis, lumbosacral region; E11.9 Type 2 diabetes mellitus without complications; E78.5 Hyperlipidemia, unspecified; G40.909 Epilepsy, unspecified, not intractable, without status epilepticus; R09.02 Hypoxemia; G47.30 Sleep apnea, unspecified
CPT/HCPCS: 36600; 71010; 72110; 80048; 80202; 82565; 82803; 82962; 84520; 85025; 86850; 86900; 86901; 87086; 90686; 94660; 97110; 97116; 97162; 97165; 97530; 97535; C1713; C1762; J1170; J1815; J2250; J2270; J2370; J2405; J3010; J3370; J7050; J7120

== ENCOUNTER 2017-09-12 17:59 | Inpatient (IN) | payer BC ==
[~2017-09-12] VITALS: Ht 167.6 cm; Wt 108.2 kg
[~2017-09-12 17:59] MED LIST changes: -ROCURONIUM 50 MG INJ ONE
[2017-09-12 22:00] VITALS: BP 111/77; RESP 18
[2017-09-12] MEDS ORDERED: GLUCOSE GEL 15 GRAM TUBE BUCCAL PRN (23:45)
[2017-09-12] MEDS ORDERED: GLUCOSE GEL 15 GRAM TUBE PO PRN ×2 (23:45)
[2017-09-12] MEDS ORDERED: GLUCAGON 1 MG INJ IM PRN (23:45)
[2017-09-12] MEDS ORDERED: DEXTROSE 50% 50 ML SYRINGE IV PRN ×2 (23:45)
[2017-09-13] MEDS ORDERED: MAGNESIUM HYDROXIDE 30ML CUP PO PRN (00:30)
[2017-09-13] MEDS ORDERED: BISACODYL 10 MG SUPP PR PRN (00:30)
[2017-09-13 00:45] LABS: ADD UMIC NO; UR ASCORBIC ACID NEGATIVE (NEGATIVE); UR BILIRUBIN (Dip) NEGATIVE (NEGATIVE); UR BLOOD (Dip) NEGATIVE (NEGATIVE); UR CLARITY CLEAR (CLEAR); UR COLOR YELLOW (YELLOW); UR GLUCOSE (Dip) 1+ mg/dL (NEGATIVE); UR KETONES (Dip) TRACE mg/dL (NEGATIVE); UR LEUKOCYTE ESTERASE (Dip) NEGATIVE Leu/ul (NEGATIVE); UR NITRITE (Dip) NEGATIVE (NEGATIVE); UR SPECIFIC GRAVITY (Dip) 1.018 (1.003-1.030); UR TOTAL PROTEIN (Dip) NEGATIVE (NEGATIVE); UR UROBILINOGEN (Dip) 2+ mg/dL (NEGATIVE)
[2017-09-13 02:00] VITALS: BP 125/79; RESP 18
[2017-09-13] MEDS: ACCUCHECK AT 2AM (Patients on SS coverage) XX SCH (02:00)
[2017-09-13] MEDS: ACETAMINOPHEN 325 MG TAB PO PRN ×2 (02:43→19:37)
[2017-09-13 03:01] VITALS: Ht 167.6 cm; Wt 108.2 kg
[2017-09-13] MEDS: Insulin NOVOLOG SS MILD Algorithm (SS with meals and bedtime) SC SCH ×4 (07:05→21:00)
[2017-09-13 07:19] LABS: BASOPHIL # 0.1 10^3/ul (0.0-0.1); BASOPHILS % 0.8 % (0.0-2.0); EOSINOPHILS # 0.3 10^3/ul (0.0-0.5); EOSINOPHILS % 2.5 % (0.0-7.0); HEMATOCRIT 34.2 % (42.0-52.0); HEMOGLOBIN 11.4 g/dl (14.0-18.0); LYMPHOCYTES # 2.5 10^3/ul (0.8-2.9); LYMPHOCYTES % 22.3 % (15.0-51.0); MEAN CORPUSCULAR HEMOGLOBIN 28.6 pg (29.0-33.0); MEAN CORPUSCULAR HGB CONC 33.3 g/dl (32.0-37.0); MEAN CORPUSCULAR VOLUME 85.7 fl (82.0-101.0); MEAN PLATELET VOLUME 9.7 fl (7.4-10.4); MONOCYTE # 1.3 10^3/ul (0.3-0.9); MONOCYTES % 11.3 % (0.0-11.0); NEUTROPHIL # 6.6 10^3/ul (1.6-7.5); NEUTROPHILS % 58.7 % (39.0-77.0); PLATELET COUNT 326 10^3/UL (140-415); RED BLOOD COUNT 3.99 10^6/ul (4.70-6.10); RED CELL DISTRIBUTION WIDTH 12.6 % (11.5-14.5); WHITE BLOOD COUNT 11.3 10^3/ul (4.8-10.8)
[2017-09-13 08:00] VITALS: BP 131/76; PULSE 94; RESP 18
[2017-09-13 08:00] LABS: ALBUMIN 3.3 g/dl (3.3-4.9); ALBUMIN/GLOBULIN RATIO 0.89; BILIRUBIN,INDIRECT 0.3 mg/dl (0-1.1); BILIRUBIN,TOTAL 0.3 mg/dl (0.2-1.3); CALCIUM 8.7 mg/dl (8.4-10.2); CREATININE 0.82 mg/dl (0.61-1.24); POTASSIUM 3.4 mmol/L (3.5-5.1)
[2017-09-13] MEDS: DIVALPROEX (EC) 500 MG TAB PO SCH ×2 (08:50→20:16)
[2017-09-13] MEDS: CYCLOBENZAPRINE 10 MG TAB PO SCH ×3 (08:51→20:09)
[2017-09-13] MEDS: metFORMIN 500 MG TAB PO SCH ×2 (08:51→18:15)
[2017-09-13] MEDS: DOCUSATE SODIUM 100 MG CAP PO SCH (08:51)
[2017-09-13] MEDS: OXCARBAZEPINE 300 MG TAB PO SCH ×2 (08:51→20:16)
[2017-09-13] MEDS: LINAGLIPTIN 5 MG TABLET PO SCH (08:51)
--- NOTE | 2017-09-13 12:17 | CONS ---
DATE OF ADMISSION: 09/12/2017 DATE OF CONSULTATION: 09/13/2017 REHABILITATION POST ADMISSION PHYSICIAN EVALUATION REHABILITATION IMPAIRMENT CATEGORY: Other orthopedic disorder with lumbar spondylosis and radiculopathy, status post lumbar laminectomy and fusion. ACTIVE COMORBIDITIES: 1. Acute pain syndrome. 2. Hypertension. 3. Diabetes mellitus. 4. Seizure disorder. 5. Sleep apnea. 6. History of right shoulder dislocation. 7. Impairments in self-care and mobility. HISTORY OF PRESENT ILLNESS: The patient is a 41-year-old Latvian-speaking gentleman with a history of increasing radiating back pain despite conservative measures. The patient underwent lumbar laminectomy and fusion with postoperative course notable for significant pain in addition to impairments in self-care and mobility as compared to baseline. The patient has been cleared to transfer to the rehabilitation unit for comprehensive interdisciplinary rehab care. FUNCTIONAL HISTORY: Prior to recent events, he was independent in self-care tasks and mobility. Currently, the patient requires minimal to moderate assist for self-care and mobility tasks. I have reviewed the preadmission screen and the patient's current functional status is consistent with the preadmission screen. SOCIAL HISTORY: The patient reports living at home with family and hopes to return there upon discharge. PAST MEDICAL HISTORY: 1. Sleep apnea. 2. Hypertension. 3. Diabetes mellitus. 4. Seizure disorder. 5. History of right shoulder dislocation. CURRENT MEDICATIONS: 1. [place] p.r.n. 2. Lipitor 20 mg p.o. at bedtime. 3. Flexeril 10 mg p.o. t.i.d. 4. Insulin sliding scale. 5. Depakote 1000 mg p.o. b.i.d. 6. Colace 100 mg p.o. daily. 7. Lantus 10 units subcutaneous daily. 8. Tradjenta 5 mg p.o. daily. 9. Glucophage 1000 mg p.o. b.i.d. 10. Trileptal 600 mg p.o. b.i.d. ALLERGIES 1. PENICILLIN. 2. AMPICILLIN. PHYSICAL EXAMINATION: VITAL SIGNS: The patient is currently afebrile with stable vital signs. HEENT: Extraocular motion intact. Oropharynx clear. NECK: Supple. LUNGS: Clear anteriorly. CARDIAC: S1, S2. ABDOMEN: Soft, nontender, positive bowel sounds. NEUROLOGIC: He is awake and alert and oriented x3. He will follow simple 1- step commands. He demonstrates antigravity strength in bilateral upper extremity and lower extremity. He does have impaired dynamic balance. PLAN: The patient has been admitted for comprehensive interdisciplinary acute rehab and is anticipated to tolerate 3 hours of daily therapy in divided doses for at least 5/7 days a week. The treatment plan will include: 1. Physical therapy to focus on bed mobility, transfers, and household ambulation with the goal of having the patient reach a supervised to modified independent level. 2. Occupational therapy to focus on hygiene, grooming, dressing, bathing, and toileting activities with the goal of having the patient reach a supervised to modified independent level. 3. Rehabilitation nursing for carryover of therapeutic interventions, the goal of continent of bowel and bladder, and the goal of pain adequately managed on oral medications. REHABILITATION BARRIER: Pain. INTERVENTION FOR BARRIER: Interdisciplinary approach. ESTIMATED LENGTH OF STAY: 14 days DISPOSITION GOAL: Home. I acknowledge that I performed a full physical examination on this patient within 24 hours of admission to the rehabilitation unit. I believe the patient is a good candidate for comprehensive interdisciplinary rehab care and is anticipated to make reasonable goals in a reasonable period of time as outlined above. Dictated By: ISAIAH DANG/DIAN Conf#: [id number] DID#: [id number] MTDD
[2017-09-13 14:00] VITALS: BP 118/80; RESP 18
--- NOTE | 2017-09-13 15:05 | HP ---
Date/Time of Note Date/Time of Note DATE: 09/13/17 TIME: 15:00 Assessment/Plan VTE Prophylaxis VTE Prophylaxis Intervention: SCD's Lines/Catheters IV Catheter Type (from Nrsg): Saline Lock Urinary Cath still in place: No Assessment/Plan Assessment/Plan -Lumbar spondylosis with mechanical low back pain and leg pain, status post L4- L5 and sacral laminectomy with posterolateral fusion and pedicle screw instrumentation by Dr. Diaz on 09/07. Continue physical therapy. -Hypertension -Hyperlipidemia -Diabetes, continue Tradjenta, Lantus, and NovoLog -Seizure disorder, continue Depakote -Possible sleep apnea Further recommendations based on clinical course. Plan of care discussed with Dr. Mills. HPI/ROS Admit Date/Time Admit Date/Time Sep 12, 2017 at 21:50 Hx of Present Illness The patient is 41-year-old male with history of hypertension, hyperlipidemia, seizure disorder, diabetes, obesity, and chronic back pain. The patient underwent L4-L5 and sacral laminectomy with posterolateral fusion and pedicle screw instrumentation by Dr. Diaz on 09/07. Postoperatively patient experienced significant pain and slow progress with physical therapy. Patient experienced impairment in mobility and self-care and admitted to acute rehabilitation for further management and treatment. PMH/Family/Social Past Medical History Medical History: diabetes, hypertension, hyperthyroid, other (Seizure disorder , obesity) Past Surgical History Status post appendectomy Family History Significant Family History: other (Father from heart attack at age of 55, mother and sister with history of diabetes.) Social History Alcohol Use: none Smoking Status: Never smoker Drug Use: none Exam/Review of Systems Vital Signs Vitals Vital Signs Date Time Temp Pulse Resp B/P Pulse Ox O2 Delivery O2 Flow Rate FiO2 09/13/17 08:00 99.0 94 18 131/76 96 Room Air Intake and Output 09/12/17 09/12/17 09/13/17 15:00 23:00 07:00 Intake Total 300 ml Output Total 400 ml Balance -100 ml Exam Exam Constitutional: alert, oriented Respiratory: normal air movement Cardiovascular: nl pulses Gastrointestinal: non-tender, soft Musculoskeletal: nl extremities to inspection, other (Status post back surgery) Neurological: nl mental status Labs Result Diagram: 09/13/1762509/13/17625 Medications Medications Current Medications Oxcarbazepine (Trileptal) 600 mg BID PO Last administered on 09/13/17 08:51; Admin Dose 600 MG; Start 09/13/17 at 09:00 Acetaminophen/ Hydrocodone Bitart ([place] (10/325)) 1 tab Q4H PRN PO PAIN; Start 09/12/17 at 23:45 Atorvastatin Calcium (Lipitor) 20 mg DAILY@21 PO ; Start 09/13/17 at 21:00 Cyclobenzaprine HCl (Flexeril) 10 mg TID PO Last administered on 09/13/17 13: 00; Admin Dose 10 MG; Start 09/13/17 at 09:00 Miscellaneous Information 1 ea NOTE XX ; Start 09/12/17 at 23:45 Glucose (Glutose) 15 gm Q15M PRN PO DECREASED GLUCOSE; Start 09/12/17 at 23:45 Glucose (Glutose) 22.5 gm Q15M PRN PO DECREASED GLUCOSE; Start 09/12/17 at 23: 45 Dextrose (D50w Syringe) 25 ml Q15M PRN IV DECREASED GLUCOSE; Start 09/12/17 at 23:45 Dextrose (D50w Syringe) 50 ml Q15M PRN IV DECREASED GLUCOSE; Start 09/12/17 at 23:45 Glucagon (Glucagen) 1 mg Q15M PRN IM DECREASED GLUCOSE; Start 09/12/17 at 23:45 Glucose (Glutose) 15 gm Q15M PRN BUCCAL DECREASED GLUCOSE; Start 09/12/17 at 23 :45 Divalproex Sodium (Depakote) 1,000 mg BID PO Last administered on 09/13/17 08: 50; Admin Dose 1,000 MG; Start 09/13/17 at 09:00 Docusate Sodium (Colace) 100 mg DAILY PO Last administered on 09/13/17 08:51; Admin Dose 100 MG; Start 09/13/17 at 09:00 Diagnostic Test (Pha) (Accu-Chek) 1 ea 02 XX ; Start 09/13/17 at 02:00 Insulin Glargine (Lantus) 10 unit DAILY@20 SC ; Start 09/13/17 at 20:00 Linagliptin (Tradjenta) 5 mg DAILY PO Last administered on 09/13/17 08:51; Admin Dose 5 MG; Start 09/13/17 at 09:00 Magnesium Hydroxide (Milk Of Mag) 30 ml DAILY PRN PO CONSTIPATION; Start at 00:30 Acetaminophen (Tylenol Tab) 650 mg Q4H PRN PO PAIN AND OR ELEVATED TEMP Last administered on 09/13/17 02:43; Admin Dose 650 MG; Start 09/13/17 at 00:30 Bisacodyl (Dulcolax Supp) 10 mg DAILY PRN [place] CONSTIPATION; Start 09/13/17 at 00 :30 ELINOR RODARTE Sep 13, 2017 15:05
[2017-09-13] MEDS ORDERED: POTASSIUM CHLORIDE 20 MEQ POWDER FOR ORAL SOLN PO ONE (15:30)
[2017-09-13 20:00] VITALS: BP 133/90; RESP 18
[2017-09-13] MEDS: HYDROCODONE/APAP (10/325) TAB PO PRN (20:15)
[2017-09-13] MEDS: ATORVASTATIN 20 MG TAB PO SCH (20:16)
[2017-09-13] MEDS: INSULIN GLARGINE [LANtus] 3 ML PEN SC SCH (20:31)
[2017-09-14 02:00] VITALS: BP 128/80; RESP 18
[2017-09-14] MEDS: ACCUCHECK AT 2AM (Patients on SS coverage) XX SCH (02:00)
[2017-09-14] MEDS: HYDROCODONE/APAP (10/325) TAB PO PRN ×3 (03:35→17:48)
[2017-09-14] MEDS: Insulin NOVOLOG SS MILD Algorithm (SS with meals and bedtime) SC SCH ×4 (07:05→21:00)
[2017-09-14 08:00] VITALS: BP 129/86; RESP 18
[2017-09-14] MEDS: metFORMIN 500 MG TAB PO SCH ×2 (08:16→17:43)
[2017-09-14] MEDS: DIVALPROEX (EC) 500 MG TAB PO SCH ×2 (08:17→21:47)
[2017-09-14] MEDS: CYCLOBENZAPRINE 10 MG TAB PO SCH ×3 (08:17→21:47)
[2017-09-14] MEDS: DOCUSATE SODIUM 100 MG CAP PO SCH (08:17)
[2017-09-14] MEDS: LINAGLIPTIN 5 MG TABLET PO SCH (08:18)
[2017-09-14] MEDS: OXCARBAZEPINE 300 MG TAB PO SCH ×2 (08:18→21:47)
--- NOTE | 2017-09-14 11:12 | CONS ---
Date/Time of Note Date/Time of Note DATE: 09/14/17 TIME: 11:09 Consult Date/Type/Reason Admit Date/Time Sep 12, 2017 at 21:50 Initial Consult Date Subjective Patient feeling better Objective pulm-cta min assist Vital Signs Date Time Temp Pulse Resp B/P Pulse Ox O2 Delivery O2 Flow Rate FiO2 09/14/17 02:00 98.6 87 18 128/80 95 09/13/17 08:00 Room Air Intake and Output 09/13/17 09/13/17 09/14/17 14:59 22:59 06:59 Intake Total 1040 ml 1150 ml Output Total 700 ml 300 ml 500 ml Balance -700 ml 740 ml 650 ml Results/Medications Result Diagram: 09/13/1762509/13/17625 Results 24 hrs Laboratory Tests Test 09/13/17 12:07 09/13/17 17:28 09/13/17 20:13 09/14/17 07:54 Bedside Glucose 133 132 149 118 Medications Current Medications Oxcarbazepine (Trileptal) 600 mg BID PO Last administered on 09/14/17 08:18; Admin Dose 600 MG; Start 09/13/17 at 09:00 Acetaminophen/ Hydrocodone Bitart ([place] (10/325)) 1 tab Q4H PRN PO PAIN Last administered on 09/14/17 03:35; Admin Dose 1 TAB; Start 09/12/17 at 23:45 Atorvastatin Calcium (Lipitor) 20 mg DAILY@21 PO Last administered on 20:16; Admin Dose 20 MG; Start 09/13/17 at 21:00 Cyclobenzaprine HCl (Flexeril) 10 mg TID PO Last administered on 09/14/17 08: 17; Admin Dose 10 MG; Start 09/13/17 at 09:00 Miscellaneous Information 1 ea NOTE XX ; Start 09/12/17 at 23:45 Glucose (Glutose) 15 gm Q15M PRN PO DECREASED GLUCOSE; Start 09/12/17 at 23:45 Glucose (Glutose) 22.5 gm Q15M PRN PO DECREASED GLUCOSE; Start 09/12/17 at 23: 45 Dextrose (D50w Syringe) 25 ml Q15M PRN IV DECREASED GLUCOSE; Start 09/12/17 at 23:45 Dextrose (D50w Syringe) 50 ml Q15M PRN IV DECREASED GLUCOSE; Start 09/12/17 at 23:45 Glucagon (Glucagen) 1 mg Q15M PRN IM DECREASED GLUCOSE; Start 09/12/17 at 23:45 Glucose (Glutose) 15 gm Q15M PRN BUCCAL DECREASED GLUCOSE; Start 09/12/17 at 23 :45 Divalproex Sodium (Depakote) 1,000 mg BID PO Last administered on 09/14/17 08: 17; Admin Dose 1,000 MG; Start 09/13/17 at 09:00 Docusate Sodium (Colace) 100 mg DAILY PO Last administered on 09/14/17 08:17; Admin Dose 100 MG; Start 09/13/17 at 09:00 Diagnostic Test (Pha) (Accu-Chek) 1 ea 02 XX ; Start 09/13/17 at 02:00 Insulin Glargine (Lantus) 10 unit DAILY@20 SC Last administered on 09/13/17 20 :31; Admin Dose 10 UNIT; Start 09/13/17 at 20:00 Linagliptin (Tradjenta) 5 mg DAILY PO Last administered on 09/14/17 08:18; Admin Dose 5 MG; Start 09/13/17 at 09:00 Magnesium Hydroxide (Milk Of Mag) 30 ml DAILY PRN PO CONSTIPATION; Start at 00:30 Acetaminophen (Tylenol Tab) 650 mg Q4H PRN PO PAIN AND OR ELEVATED TEMP Last administered on 09/13/17 19:37; Admin Dose 650 MG; Start 09/13/17 at 00:30 Bisacodyl (Dulcolax Supp) 10 mg DAILY PRN [place] CONSTIPATION; Start 09/13/17 at 00 :30 Assessment/Plan Additional Assessment/Plan Rehab- Other orthopedic disorder with lumbar spondylosis and radiculopathy, status post lumbar laminectomy and fusion. Progressing with rehab program Acute pain syndrome-improved. Hypertension. Diabetes mellitus. Seizure disorder. Sleep apnea. History of right shoulder dislocation. ISAIAH SAWANT MD Sep 14, 2017 11:12
--- NOTE | 2017-09-14 15:04 | PN ---
Date/Time of Note Date/Time of Note DATE: 09/14/17 TIME: 15:02 Assessment/Plan VTE Prophylaxis VTE Prophylaxis Intervention: other Lines/Catheters IV Catheter Type (from Nrsg): Saline Lock Urinary Cath still in place: No Assessment/Plan Assessment/Plan -Lumbar spondylosis with mechanical low back pain and leg pain, status post L4- L5 and sacral laminectomy with posterolateral fusion and pedicle screw instrumentation by Dr. Diaz on 09/07. Continue physical therapy. -Hypertension -Hyperlipidemia -Diabetes, continue Tradjenta, Lantus, and NovoLog -Seizure disorder, continue Depakote -Possible sleep apnea Further recommendations based on clinical course. Plan of care discussed with Dr. Mills. Subjective 24 Hr Interval Summary Free Text/Dictation -NAD -Sitting up in chair in a physical therapy room -Is better today -Able to get PT, tolerating well -Discussed with staff no acute issues reported overnight Constitutional: improved Cardiovascular: no complaints Gastrointestinal: no complaints Musculoskeletal: back pain Skin: no complaints Neurologic: no complaints Exam/Review of Systems Vital Signs Vitals Vital Signs Date Time Temp Pulse Resp B/P Pulse Ox O2 Delivery O2 Flow Rate FiO2 09/14/17 08:00 98.4 85 18 129/86 96 09/13/17 08:00 Room Air Intake and Output 09/13/17 09/13/17 09/14/17 15:00 23:00 07:00 Intake Total 1040 ml 1150 ml Output Total 700 ml 300 ml 500 ml Balance -700 ml 740 ml 650 ml Exam Constitutional: alert, obese, oriented Respiratory: clear to auscultation, normal air movement Cardiovascular: nl pulses, regular rate and rhythm Musculoskeletal: nl extremities to inspection, range of motion Extremities: normal pulses Neurological: nl mental status, nl speech Results Result Diagram: 09/13/17 0626 09/13/17 0626 Results 24 hrs Laboratory Tests Test 09/13/17 17:28 09/13/17 20:13 09/14/17 07:54 09/14/17 12:20 Bedside Glucose 132 149 118 123 Medications Medications Current Medications Oxcarbazepine (Trileptal) 600 mg BID PO Last administered on 09/14/17t 08:18; Admin Dose 600 MG; Start 09/13/17 at 09:00 Acetaminophen/ Hydrocodone Bitart ([place] (10/325)) 1 tab Q4H PRN PO PAIN Last administered on 09/14/17 12:24; Admin Dose 1 TAB; Start 09/12/17 at 23:45 Atorvastatin Calcium (Lipitor) 20 mg DAILY@21 PO Last administered on 20:16; Admin Dose 20 MG; Start 09/13/17 at 21:00 Cyclobenzaprine HCl (Flexeril) 10 mg TID PO Last administered on 09/14/17 12: 24; Admin Dose 10 MG; Start 09/13/17 at 09:00 Miscellaneous Information 1 ea NOTE XX ; Start 09/12/17 at 23:45 Glucose (Glutose) 15 gm Q15M PRN PO DECREASED GLUCOSE; Start 09/12/17 at 23:45 Glucose (Glutose) 22.5 gm Q15M PRN PO DECREASED GLUCOSE; Start 09/12/17 at 23: 45 Dextrose (D50w Syringe) 25 ml Q15M PRN IV DECREASED GLUCOSE; Start 09/12/17 at 23:45 Dextrose (D50w Syringe) 50 ml Q15M PRN IV DECREASED GLUCOSE; Start 09/12/17 at 23:45 Glucagon (Glucagen) 1 mg Q15M PRN IM DECREASED GLUCOSE; Start 09/12/17 at 23:45 Glucose (Glutose) 15 gm Q15M PRN BUCCAL DECREASED GLUCOSE; Start 09/12/17 at 23 :45 Divalproex Sodium (Depakote) 1,000 mg BID PO Last administered on 09/14/17 08: 17; Admin Dose 1,000 MG; Start 09/13/17 at 09:00 Docusate Sodium (Colace) 100 mg DAILY PO Last administered on 09/14/17 08:17; Admin Dose 100 MG; Start 09/13/17 at 09:00 Diagnostic Test (Pha) (Accu-Chek) 1 ea 02 XX ; Start 09/13/17 at 02:00 Insulin Glargine (Lantus) 10 unit DAILY@20 SC Last administered on 09/13/17 20 :31; Admin Dose 10 UNIT; Start 09/13/17 at 20:00 Linagliptin (Tradjenta) 5 mg DAILY PO Last administered on 09/14/17 08:18; Admin Dose 5 MG; Start 09/13/17 at 09:00 Magnesium Hydroxide (Milk Of Mag) 30 ml DAILY PRN PO CONSTIPATION; Start at 00:30 Acetaminophen (Tylenol Tab) 650 mg Q4H PRN PO PAIN AND OR ELEVATED TEMP Last administered on 09/13/17t 19:37; Admin Dose 650 MG; Start 09/13/17 at 00:30 Bisacodyl (Dulcolax Supp) 10 mg DAILY PRN [place] CONSTIPATION; Start 09/13/17 at 00 :30 PATRICE WYATT Sep 14, 2017 15:04
[2017-09-14 19:32] VITALS: BP 121/78; RESP 18
[2017-09-14] MEDS: ATORVASTATIN 20 MG TAB PO SCH (21:47)
[2017-09-14] MEDS: INSULIN GLARGINE [LANtus] 3 ML PEN SC SCH (21:53)
[2017-09-15] MEDS: HYDROCODONE/APAP (10/325) TAB PO PRN ×3 (00:44→20:24)
[2017-09-15] MEDS: ACCUCHECK AT 2AM (Patients on SS coverage) XX SCH (02:00)
[2017-09-15 02:24] VITALS: BP 119/74; RESP 19
[2017-09-15 07:00] VITALS: BP 127/99; RESP 18
[2017-09-15 08:00] VITALS: BP 127/99; RESP 18
[2017-09-15] MEDS: OXCARBAZEPINE 300 MG TAB PO SCH ×2 (09:02→20:24)
[2017-09-15] MEDS: CYCLOBENZAPRINE 10 MG TAB PO SCH ×3 (09:03→20:23)
[2017-09-15] MEDS: metFORMIN 500 MG TAB PO SCH ×2 (09:03→17:35)
[2017-09-15] MEDS: DOCUSATE SODIUM 100 MG CAP PO SCH (09:03)
[2017-09-15] MEDS: LINAGLIPTIN 5 MG TABLET PO SCH (09:03)
[2017-09-15] MEDS: DIVALPROEX (EC) 500 MG TAB PO SCH ×2 (09:03→20:23)
[2017-09-15] MEDS: Insulin NOVOLOG SS MILD Algorithm (SS with meals and bedtime) SC SCH ×3 (09:06→20:24)
--- NOTE | 2017-09-15 12:42 | CONS ---
Date/Time of Note Date/Time of Note DATE: 09/15/17 TIME: 12:42 Consult Date/Type/Reason Admit Date/Time Sep 12, 2017 at 21:50 Subjective Overall improving Objective pulm-cta cga/sba ambulation Vital Signs Date Time Temp Pulse Resp B/P Pulse Ox O2 Delivery O2 Flow Rate FiO2 09/15/17 08:00 99.0 18 127/99 93 Room Air 09/15/17 07:00 88 Intake and Output 09/14/17 09/14/17 09/15/17 15:00 23:00 07:00 Intake Total 1400 ml 420 ml Output Total 800 ml 900 ml Balance 600 ml -480 ml Results/Medications Result Diagram: 09/13/1762509/13/17 06 Results 24 hrs Laboratory Tests Test 09/14/17 17:35 09/14/17 21:50 09/15/17 07:49 Bedside Glucose 104 99 143 Medications Current Medications Oxcarbazepine (Trileptal) 600 mg BID PO Last administered on 09/15/17 09:02; Admin Dose 600 MG; Start 09/13/17 at 09:00 Acetaminophen/ Hydrocodone Bitart ([place] (10/325)) 1 tab Q4H PRN PO PAIN Last administered on 09/15/17 10:40; Admin Dose 1 TAB; Start 09/12/17 at 23:45 Atorvastatin Calcium (Lipitor) 20 mg DAILY@21 PO Last administered on 21:47; Admin Dose 20 MG; Start 09/13/17 at 21:00 Cyclobenzaprine HCl (Flexeril) 10 mg TID PO Last administered on 09/15/17 09: 03; Admin Dose 10 MG; Start 09/13/17 at 09:00 Miscellaneous Information 1 ea NOTE XX ; Start 09/12/17 at 23:45 Glucose (Glutose) 15 gm Q15M PRN PO DECREASED GLUCOSE; Start 09/12/17 at 23:45 Glucose (Glutose) 22.5 gm Q15M PRN PO DECREASED GLUCOSE; Start 09/12/17 at 23: 45 Dextrose (D50w Syringe) 25 ml Q15M PRN IV DECREASED GLUCOSE; Start 09/12/17 at 23:45 Dextrose (D50w Syringe) 50 ml Q15M PRN IV DECREASED GLUCOSE; Start 09/12/17 at 23:45 Glucagon (Glucagen) 1 mg Q15M PRN IM DECREASED GLUCOSE; Start 09/12/17 at 23:45 Glucose (Glutose) 15 gm Q15M PRN BUCCAL DECREASED GLUCOSE; Start 09/12/17 at 23 :45 Divalproex Sodium (Depakote) 1,000 mg BID PO Last administered on 09/15/17 09: 03; Admin Dose 1,000 MG; Start 09/13/17 at 09:00 Docusate Sodium (Colace) 100 mg DAILY PO Last administered on 09/15/17 09:03; Admin Dose 100 MG; Start 09/13/17 at 09:00 Diagnostic Test (Pha) (Accu-Chek) 1 ea 02 XX ; Start 09/13/17 at 02:00 Insulin Glargine (Lantus) 10 unit DAILY@20 SC Last administered on 09/14/17 21 :53; Admin Dose 10 UNIT; Start 09/13/17 at 20:00 Linagliptin (Tradjenta) 5 mg DAILY PO Last administered on 09/15/17 09:03; Admin Dose 5 MG; Start 09/13/17 at 09:00 Magnesium Hydroxide (Milk Of Mag) 30 ml DAILY PRN PO CONSTIPATION; Start at 00:30 Acetaminophen (Tylenol Tab) 650 mg Q4H PRN PO PAIN AND OR ELEVATED TEMP Last administered on 09/13/17 19:37; Admin Dose 650 MG; Start 09/13/17 at 00:30 Bisacodyl (Dulcolax Supp) 10 mg DAILY PRN [place] CONSTIPATION; Start 09/13/17 at 00 :30 Assessment/Plan Additional Assessment/Plan Rehab- Other orthopedic disorder with lumbar spondylosis and radiculopathy, status post lumbar laminectomy and fusion. Continue rehab program Acute pain syndrome-improved. Hypertension. Diabetes mellitus. Seizure disorder. Sleep apnea. History of right shoulder dislocation. ISAIAH SAWANT MD Sep 15, 2017 12:42
[2017-09-15] MEDS: ACETAMINOPHEN 325 MG TAB PO PRN (13:36)
[2017-09-15 14:00] VITALS: BP 118/75; RESP 18
[2017-09-15 20:00] VITALS: BP 123/63; RESP 18
--- NOTE | 2017-09-15 20:04 | PN ---
Date/Time of Note Date/Time of Note DATE: 09/15/17 TIME: 20:02 Assessment/Plan VTE Prophylaxis VTE Prophylaxis Intervention: SCD's Lines/Catheters IV Catheter Type (from Nrsg): Saline Lock Urinary Cath still in place: No Assessment/Plan Chief Complaint/Hosp Course Patient participates in physical therapy with gradual improvement in function, pain is well controlled. Assessment/Plan -Lumbar spondylosis with mechanical low back pain and leg pain, status post L4- L5 and sacral laminectomy with posterolateral fusion and pedicle screw instrumentation by Dr. Diaz on 09/07. Continue physical therapy. -Hypertension -Hyperlipidemia -Diabetes, continue Tradjenta, Lantus, and NovoLog -Seizure disorder, continue Depakote -Possible sleep apnea Further recommendations based on clinical course. Plan of care discussed with Dr. Mills. Problems: Exam/Review of Systems Vital Signs Vitals Vital Signs Date Time Temp Pulse Resp B/P Pulse Ox O2 Delivery O2 Flow Rate FiO2 09/15/17 14:00 98.9 89 18 118/75 96 09/15/17 08:00 Room Air Intake and Output 09/14/17 09/14/17 09/15/17 15:00 23:00 07:00 Intake Total 1400 ml 420 ml Output Total 800 ml 900 ml Balance 600 ml -480 ml Exam Constitutional: alert, oriented Respiratory: normal air movement Cardiovascular: nl pulses Gastrointestinal: non-tender, soft Musculoskeletal: nl extremities to inspection, other (Status post back surgery) Neurological: nl mental status Results Result Diagram: 09/13/17 0626 09/13/17 0626 Results 24 hrs Laboratory Tests Test 09/14/17 21:50 09/15/17 07:49 09/15/17 12:18 09/15/17 18:21 Bedside Glucose 99 143 109 112 Medications Medications Current Medications Oxcarbazepine (Trileptal) 600 mg BID PO Last administered on 09/15/17 09:02; Admin Dose 600 MG; Start 09/13/17 at 09:00 Acetaminophen/ Hydrocodone Bitart ([place] (10/325)) 1 tab Q4H PRN PO PAIN Last administered on 09/15/17 10:40; Admin Dose 1 TAB; Start 09/12/17 at 23:45 Atorvastatin Calcium (Lipitor) 20 mg DAILY@21 PO Last administered on 21:47; Admin Dose 20 MG; Start 09/13/17 at 21:00 Cyclobenzaprine HCl (Flexeril) 10 mg TID PO Last administered on 09/15/17 13: 38; Admin Dose 10 MG; Start 09/13/17 at 09:00 Miscellaneous Information 1 ea NOTE XX ; Start 09/12/17 at 23:45 Glucose (Glutose) 15 gm Q15M PRN PO DECREASED GLUCOSE; Start 09/12/17 at 23:45 Glucose (Glutose) 22.5 gm Q15M PRN PO DECREASED GLUCOSE; Start 09/12/17 at 23: 45 Dextrose (D50w Syringe) 25 ml Q15M PRN IV DECREASED GLUCOSE; Start 09/12/17 at 23:45 Dextrose (D50w Syringe) 50 ml Q15M PRN IV DECREASED GLUCOSE; Start 09/12/17 at 23:45 Glucagon (Glucagen) 1 mg Q15M PRN IM DECREASED GLUCOSE; Start 09/12/17 at 23:45 Glucose (Glutose) 15 gm Q15M PRN BUCCAL DECREASED GLUCOSE; Start 09/12/17 at 23 :45 Divalproex Sodium (Depakote) 1,000 mg BID PO Last administered on 09/15/17 09: 03; Admin Dose 1,000 MG; Start 09/13/17 at 09:00 Docusate Sodium (Colace) 100 mg DAILY PO Last administered on 09/15/17 09:03; Admin Dose 100 MG; Start 09/13/17 at 09:00 Diagnostic Test (Pha) (Accu-Chek) 1 ea 02 XX ; Start 09/13/17 at 02:00 Insulin Glargine (Lantus) 10 unit DAILY@20 SC Last administered on 09/14/17 21 :53; Admin Dose 10 UNIT; Start 09/13/17 at 20:00 Linagliptin (Tradjenta) 5 mg DAILY PO Last administered on 09/15/17 09:03; Admin Dose 5 MG; Start 09/13/17 at 09:00 Magnesium Hydroxide (Milk Of Mag) 30 ml DAILY PRN PO CONSTIPATION; Start at 00:30 Acetaminophen (Tylenol Tab) 650 mg Q4H PRN PO PAIN AND OR ELEVATED TEMP Last administered on 09/15/17 13:36; Admin Dose 650 MG; Start 09/13/17 at 00:30 Bisacodyl (Dulcolax Supp) 10 mg DAILY PRN [place] CONSTIPATION; Start 09/13/17 at 00 :30 Acetaminophen/ Hydrocodone Bitart ([place] (10325)) 2 tab Q6H PRN PO SEVERE PAIN LEVEL 7-10; Start 09/15/17 at 13:00 ELINOR RODARTE Sep 15, 2017 20:04
[2017-09-15] MEDS: ATORVASTATIN 20 MG TAB PO SCH (20:23)
[2017-09-15] MEDS: INSULIN GLARGINE [LANtus] 3 ML PEN SC SCH (20:32)
[2017-09-16 02:00] VITALS: BP 120/70; RESP 18
[2017-09-16] MEDS: ACCUCHECK AT 2AM (Patients on SS coverage) XX SCH (02:00)
[2017-09-16] MEDS: HYDROCODONE/APAP (10/325) TAB PO PRN ×2 (05:41→20:28)
--- NOTE | 2017-09-16 06:48 | CONS ---
Date/Time of Note Date/Time of Note DATE: 09/16/17 TIME: 06:48 Consult Date/Type/Reason Admit Date/Time Sep 12, 2017 at 21:50 Subjective Feeling much better Objective sba/s ambulation 150 feet Vital Signs Date Time Temp Pulse Resp B/P Pulse Ox O2 Delivery O2 Flow Rate FiO2 09/16/17 02:00 98.2 84 18 120/70 95 09/15/17 08:00 Room Air Intake and Output 09/15/17 09/15/17 09/16/17 15:00 23:00 07:00 Intake Total 1600 ml Output Total 1200 ml Balance 400 ml Results/Medications Result Diagram: 09/13/1762509/13/17625 Results 24 hrs Laboratory Tests Test 09/15/17 07:49 09/15/17 12:18 09/15/17 18:21 09/15/17 20:22 Bedside Glucose 143 109 112 127 Medications Current Medications Oxcarbazepine (Trileptal) 600 mg BID PO Last administered on 09/15/17 20:24; Admin Dose 600 MG; Start 09/13/17 at 09:00 Acetaminophen/ Hydrocodone Bitart ([place] (10/325)) 1 tab Q4H PRN PO PAIN Last administered on 09/16/17 05:41; Admin Dose 1 TAB; Start 09/12/17 at 23:45 Atorvastatin Calcium (Lipitor) 20 mg DAILY@21 PO Last administered on 20:23; Admin Dose 20 MG; Start 09/13/17 at 21:00 Cyclobenzaprine HCl (Flexeril) 10 mg TID PO Last administered on 09/15/17 20: 23; Admin Dose 10 MG; Start 09/13/17 at 09:00 Miscellaneous Information 1 ea NOTE XX ; Start 09/12/17 at 23:45 Glucose (Glutose) 15 gm Q15M PRN PO DECREASED GLUCOSE; Start 09/12/17 at 23:45 Glucose (Glutose) 22.5 gm Q15M PRN PO DECREASED GLUCOSE; Start 09/12/17 at 23: 45 Dextrose (D50w Syringe) 25 ml Q15M PRN IV DECREASED GLUCOSE; Start 09/12/17 at 23:45 Dextrose (D50w Syringe) 50 ml Q15M PRN IV DECREASED GLUCOSE; Start 09/12/17 at 23:45 Glucagon (Glucagen) 1 mg Q15M PRN IM DECREASED GLUCOSE; Start 09/12/17 at 23:45 Glucose (Glutose) 15 gm Q15M PRN BUCCAL DECREASED GLUCOSE; Start 09/12/17 at 23 :45 Divalproex Sodium (Depakote) 1,000 mg BID PO Last administered on 09/15/17 20: 23; Admin Dose 1,000 MG; Start 09/13/17 at 09:00 Docusate Sodium (Colace) 100 mg DAILY PO Last administered on 09/15/17 09:03; Admin Dose 100 MG; Start 09/13/17 at 09:00 Diagnostic Test (Pha) (Accu-Chek) 1 ea 02 XX ; Start 09/13/17 at 02:00 Insulin Glargine (Lantus) 10 unit DAILY@20 SC Last administered on 09/15/17 20 :32; Admin Dose 10 UNIT; Start 09/13/17 at 20:00 Linagliptin (Tradjenta) 5 mg DAILY PO Last administered on 09/15/17 09:03; Admin Dose 5 MG; Start 09/13/17 at 09:00 Magnesium Hydroxide (Milk Of Mag) 30 ml DAILY PRN PO CONSTIPATION; Start at 00:30 Acetaminophen (Tylenol Tab) 650 mg Q4H PRN PO PAIN AND OR ELEVATED TEMP Last administered on 09/15/17 13:36; Admin Dose 650 MG; Start 09/13/17 at 00:30 Bisacodyl (Dulcolax Supp) 10 mg DAILY PRN [place] CONSTIPATION; Start 09/13/17 at 00 :30 Acetaminophen/ Hydrocodone Bitart ([place] (10/325)) 2 tab Q6H PRN PO SEVERE PAIN LEVEL 7-10; Start 09/15/17 at 13:00 Assessment/Plan Additional Assessment/Plan Rehab- Other orthopedic disorder with lumbar spondylosis and radiculopathy, status post lumbar laminectomy and fusion. Continue rehab program Acute pain syndrome-improved. Hypertension. Diabetes mellitus. Seizure disorder. Sleep apnea. History of right shoulder dislocation. ISAIAH SAWANT MD Sep 16, 2017 06:48
[2017-09-16] MEDS: Insulin NOVOLOG SS MILD Algorithm (SS with meals and bedtime) SC SCH ×4 (07:05→20:40)
[2017-09-16 07:30] VITALS: BP 124/89; RESP 18
[2017-09-16] MEDS: metFORMIN 500 MG TAB PO SCH ×2 (08:30→17:35)
[2017-09-16] MEDS: DOCUSATE SODIUM 100 MG CAP PO SCH (08:31)
[2017-09-16] MEDS: CYCLOBENZAPRINE 10 MG TAB PO SCH ×3 (08:31→20:27)
[2017-09-16] MEDS: LINAGLIPTIN 5 MG TABLET PO SCH (08:31)
[2017-09-16] MEDS: OXCARBAZEPINE 300 MG TAB PO SCH ×2 (08:32→20:27)
[2017-09-16] MEDS: DIVALPROEX (EC) 500 MG TAB PO SCH ×2 (08:40→20:27)
--- NOTE | 2017-09-16 12:00 | PN ---
Date/Time of Note Date/Time of Note DATE: 09/16/17 TIME: 11:59 Assessment/Plan VTE Prophylaxis VTE Prophylaxis Intervention: other Lines/Catheters IV Catheter Type (from Nrsg): Saline Lock Urinary Cath still in place: No Assessment/Plan Chief Complaint/Hosp Course -Lumbar spondylosis with mechanical low back pain and leg pain, status post L4- L5 and sacral laminectomy with posterolateral fusion and pedicle screw instrumentation by Dr. Diaz on 09/07. Continue physical therapy. -Hypertension -Hyperlipidemia -Diabetes, continue Tradjenta, Lantus, and NovoLog -Seizure disorder, continue Depakote -Possible sleep apnea Problems: Subjective 24 Hr Interval Summary Free Text/Dictation Patient complain of back Exam/Review of Systems Vital Signs Vitals Vital Signs Date Time Temp Pulse Resp B/P Pulse Ox O2 Delivery O2 Flow Rate FiO2 09/16/17 07:30 99.2 90 18 124/89 97 09/15/17 08:00 Room Air Intake and Output 09/15/17 09/15/17 09/16/17 15:00 23:00 07:00 Intake Total 1600 ml Output Total 1200 ml Balance 400 ml Exam Constitutional: well developed Head: atraumatic, normocephalic Neck: supple Respiratory: clear to auscultation Cardiovascular: regular rate and rhythm Gastrointestinal: non-tender, soft Extremities: normal pulses Results Result Diagram: 09/13/17 0609/13/17 0626 Results 24 hrs Laboratory Tests Test 09/15/17 12:18 09/15/17 18:21 09/15/17 20:22 09/16/17 08:15 Bedside Glucose 109 112 127 117 Medications Medications Current Medications Oxcarbazepine (Trileptal) 600 mg BID PO Last administered on 09/16/17 08:32; Admin Dose 600 MG; Start 09/13/17 at 09:00 Acetaminophen/ Hydrocodone Bitart ([place] (10/325)) 1 tab Q4H PRN PO PAIN Last administered on 09/16/17 05:41; Admin Dose 1 TAB; Start 09/12/17 at 23:45 Atorvastatin Calcium (Lipitor) 20 mg DAILY@21 PO Last administered on 20:23; Admin Dose 20 MG; Start 09/13/17 at 21:00 Cyclobenzaprine HCl (Flexeril) 10 mg TID PO Last administered on 09/16/17 08: 31; Admin Dose 10 MG; Start 09/13/17 at 09:00 Miscellaneous Information 1 ea NOTE XX ; Start 09/12/17 at 23:45 Glucose (Glutose) 15 gm Q15M PRN PO DECREASED GLUCOSE; Start 09/12/17 at 23:45 Glucose (Glutose) 22.5 gm Q15M PRN PO DECREASED GLUCOSE; Start 09/12/17 at 23: 45 Dextrose (D50w Syringe) 25 ml Q15M PRN IV DECREASED GLUCOSE; Start 09/12/17 at 23:45 Dextrose (D50w Syringe) 50 ml Q15M PRN IV DECREASED GLUCOSE; Start 09/12/17 at 23:45 Glucagon (Glucagen) 1 mg Q15M PRN IM DECREASED GLUCOSE; Start 09/12/17 at 23:45 Glucose (Glutose) 15 gm Q15M PRN BUCCAL DECREASED GLUCOSE; Start 09/12/17 at 23 :45 Divalproex Sodium (Depakote) 1,000 mg BID PO Last administered on 09/16/17 08: 40; Admin Dose 1,000 MG; Start 09/13/17 at 09:00 Docusate Sodium (Colace) 100 mg DAILY PO Last administered on 09/16/17 08:31; Admin Dose 100 MG; Start 09/13/17 at 09:00 Diagnostic Test (Pha) (Accu-Chek) 1 ea 02 XX ; Start 09/13/17 at 02:00 Insulin Glargine (Lantus) 10 unit DAILY@20 SC Last administered on 09/15/17 20 :32; Admin Dose 10 UNIT; Start 09/13/17 at 20:00 Linagliptin (Tradjenta) 5 mg DAILY PO Last administered on 09/16/17 08:31; Admin Dose 5 MG; Start 09/13/17 at 09:00 Magnesium Hydroxide (Milk Of Mag) 30 ml DAILY PRN PO CONSTIPATION; Start at 00:30 Acetaminophen (Tylenol Tab) 650 mg Q4H PRN PO PAIN AND OR ELEVATED TEMP Last administered on 09/15/17 13:36; Admin Dose 650 MG; Start 09/13/17 at 00:30 Bisacodyl (Dulcolax Supp) 10 mg DAILY PRN [place] CONSTIPATION; Start 09/13/17 at 00 :30 Acetaminophen/ Hydrocodone Bitart ([place] ()) 2 tab Q6H PRN PO SEVERE PAIN LEVEL 7-10; Start 09/15/17 at 13:00 IVY AYALA Sep 16, 2017 12:00
[2017-09-16 14:00] VITALS: BP 125/87; RESP 18
[2017-09-16 20:00] VITALS: BP 129/68; RESP 18
[2017-09-16] MEDS: ATORVASTATIN 20 MG TAB PO SCH (20:27)
[2017-09-16] MEDS: INSULIN GLARGINE [LANtus] 3 ML PEN SC SCH (20:39)
[2017-09-17 02:00] VITALS: BP 127/70; RESP 18
[2017-09-17] MEDS: ACCUCHECK AT 2AM (Patients on SS coverage) XX SCH (02:00)
[2017-09-17] MEDS: HYDROCODONE/APAP (10/325) TAB PO PRN ×3 (03:47→20:30)
[2017-09-17 07:00] VITALS: BP 117/81; RESP 18
[2017-09-17] MEDS: Insulin NOVOLOG SS MILD Algorithm (SS with meals and bedtime) SC SCH ×4 (07:05→20:40)
[2017-09-17] MEDS: metFORMIN 500 MG TAB PO SCH ×2 (08:40→18:18)
[2017-09-17] MEDS: DIVALPROEX (EC) 500 MG TAB PO SCH ×2 (08:54→20:29)
[2017-09-17] MEDS: CYCLOBENZAPRINE 10 MG TAB PO SCH ×3 (08:55→20:30)
[2017-09-17] MEDS: DOCUSATE SODIUM 100 MG CAP PO SCH (08:55)
[2017-09-17] MEDS: OXCARBAZEPINE 300 MG TAB PO SCH ×2 (08:56→20:29)
[2017-09-17] MEDS: LINAGLIPTIN 5 MG TABLET PO SCH (08:56)
--- NOTE | 2017-09-17 12:19 | PN ---
Date/Time of Note Date/Time of Note DATE: 09/17/17 TIME: 12:18 Assessment/Plan VTE Prophylaxis VTE Prophylaxis Intervention: other Lines/Catheters IV Catheter Type (from Nrsg): Saline Lock Urinary Cath still in place: No Assessment/Plan Chief Complaint/Hosp Course -Lumbar spondylosis with mechanical low back pain and leg pain, status post L4- L5 and sacral laminectomy with posterolateral fusion and pedicle screw instrumentation by Dr. Diaz on 09/07. Continue physical therapy. -Hypertension -Hyperlipidemia -Diabetes, continue Tradjenta, Lantus, and NovoLog -Seizure disorder, continue Depakote -Possible sleep apnea Problems: Subjective 24 Hr Interval Summary Free Text/Dictation Patient is doing well Exam/Review of Systems Vital Signs Vitals Vital Signs Date Time Temp Pulse Resp B/P Pulse Ox O2 Delivery O2 Flow Rate FiO2 09/17/17 07:00 98.3 71 18 117/81 98 09/15/17 08:00 Room Air Intake and Output 09/16/17 09/16/17 09/17/17 15:00 23:00 07:00 Intake Total 800 ml 980 ml 990 ml Output Total 960 ml 300 ml Balance 800 ml 20 ml 690 ml Exam Constitutional: well developed Head: atraumatic, normocephalic Neck: supple Respiratory: clear to auscultation Cardiovascular: regular rate and rhythm Gastrointestinal: non-tender, soft Extremities: normal pulses Results Result Diagram: 09/13/17 0626 09/13/17 0626 Results 24 hrs Laboratory Tests Test 09/16/17 12:30 09/16/17 17:22 09/16/17 20:30 09/17/17 08:15 Bedside Glucose 109 98 124 90 Test 09/17/17 12:11 Bedside Glucose 95 Medications Medications Current Medications Oxcarbazepine (Trileptal) 600 mg BID PO Last administered on 09/17/17 08:56; Admin Dose 600 MG; Start 09/13/17 at 09:00 Acetaminophen/ Hydrocodone Bitart ([place] (10/325)) 1 tab Q4H PRN PO PAIN Last administered on 09/17/17 03:47; Admin Dose 1 TAB; Start 09/12/17 at 23:45 Atorvastatin Calcium (Lipitor) 20 mg DAILY@21 PO Last administered on 20:27; Admin Dose 20 MG; Start 09/13/17 at 21:00 Cyclobenzaprine HCl (Flexeril) 10 mg TID PO Last administered on 09/17/17 08: 55; Admin Dose 10 MG; Start 09/13/17 at 09:00 Miscellaneous Information 1 ea NOTE XX ; Start 09/12/17 at 23:45 Glucose (Glutose) 15 gm Q15M PRN PO DECREASED GLUCOSE; Start 09/12/17 at 23:45 Glucose (Glutose) 22.5 gm Q15M PRN PO DECREASED GLUCOSE; Start 09/12/17 at 23: 45 Dextrose (D50w Syringe) 25 ml Q15M PRN IV DECREASED GLUCOSE; Start 09/12/17 at 23:45 Dextrose (D50w Syringe) 50 ml Q15M PRN IV DECREASED GLUCOSE; Start 09/12/17 at 23:45 Glucagon (Glucagen) 1 mg Q15M PRN IM DECREASED GLUCOSE; Start 09/12/17 at 23:45 Glucose (Glutose) 15 gm Q15M PRN BUCCAL DECREASED GLUCOSE; Start 09/12/17 at 23 :45 Divalproex Sodium (Depakote) 1,000 mg BID PO Last administered on 09/17/17 08 :54; Admin Dose 1,000 MG; Start 09/13/17 at 09:00 Docusate Sodium (Colace) 100 mg DAILY PO Last administered on 09/17/17 08:55 ; Admin Dose 100 MG; Start 09/13/17 at 09:00 Diagnostic Test (Pha) (Accu-Chek) 1 ea 02 XX ; Start 09/13/17 at 02:00 Insulin Glargine (Lantus) 10 unit DAILY@20 SC Last administered on 09/16/17 20 :39; Admin Dose 10 UNIT; Start 09/13/17 at 20:00 Linagliptin (Tradjenta) 5 mg DAILY PO Last administered on 09/17/17 08:56; Admin Dose 5 MG; Start 09/13/17 at 09:00 Magnesium Hydroxide (Milk Of Mag) 30 ml DAILY PRN PO CONSTIPATION Last administered on 09/16/17 20:35; Admin Dose 30 ML; Start 09/13/17 at 00:30 Acetaminophen (Tylenol Tab) 650 mg Q4H PRN PO PAIN AND OR ELEVATED TEMP Last administered on 09/15/17 13:36; Admin Dose 650 MG; Start 09/13/17 at 00:30 Bisacodyl (Dulcolax Supp) 10 mg DAILY PRN [place] CONSTIPATION; Start 09/13/17 at 00 :30 Acetaminophen/ Hydrocodone Bitart ([place] (10325)) 2 tab Q6H PRN PO SEVERE PAIN LEVEL 7-10 Last administered on 09/16/17 20:28; Admin Dose 2 TAB; Start 09/15/17 at 13:00 IVY AYALA Sep 17, 2017 12:19
[2017-09-17 14:00] VITALS: BP 127/79; RESP 18
[2017-09-17 20:00] VITALS: BP 127/96; RESP 18
[2017-09-17] MEDS: ATORVASTATIN 20 MG TAB PO SCH (20:30)
[2017-09-17] MEDS: INSULIN GLARGINE [LANtus] 3 ML PEN SC SCH (20:40)
[2017-09-18] MEDS: ACCUCHECK AT 2AM (Patients on SS coverage) XX SCH (01:45)
[2017-09-18 02:00] VITALS: BP 143/91; RESP 18
[2017-09-18 07:00] VITALS: BP 129/86; RESP 18
[2017-09-18] MEDS: Insulin NOVOLOG SS MILD Algorithm (SS with meals and bedtime) SC SCH ×4 (07:05→20:49)
[2017-09-18] MEDS: DIVALPROEX (EC) 500 MG TAB PO SCH ×2 (08:08→20:48)
[2017-09-18] MEDS: metFORMIN 500 MG TAB PO SCH ×2 (08:08→17:54)
[2017-09-18] MEDS: CYCLOBENZAPRINE 10 MG TAB PO SCH ×3 (08:08→20:48)
[2017-09-18] MEDS: OXCARBAZEPINE 300 MG TAB PO SCH ×2 (08:09→20:49)
[2017-09-18] MEDS: LINAGLIPTIN 5 MG TABLET PO SCH (08:09)
[2017-09-18] MEDS: HYDROCODONE/APAP (10/325) TAB PO PRN ×3 (08:09→16:18)
[2017-09-18] MEDS: DOCUSATE SODIUM 100 MG CAP PO SCH (08:09)
--- NOTE | 2017-09-18 11:46 | CONS ---
Date/Time of Note Date/Time of Note DATE: 09/18/17 TIME: 11:46 Consult Date/Type/Reason Admit Date/Time Sep 12, 2017 at 21:50 Subjective Overall improving Objective Vital Signs Date Time Temp Pulse Resp B/P Pulse Ox O2 Delivery O2 Flow Rate FiO2 09/18/17 07:00 98.1 82 18 129/86 96 09/15/17 08:00 Room Air Intake and Output 09/17/17 09/17/17 09/18/17 15:00 23:00 07:00 Intake Total 400 ml 2400 ml 400 ml Output Total 1600 ml 1650 ml Balance 400 ml 800 ml -1250 ml INTERDISCIPLINARY TEAM CONFERENCE BOWEL- Cont BLADDER-Cont SKIN- intact OT- DRESSING-sba BATHING-sba TOILETING-sba PT- BED MOBILITY-sba TRANSFERS-sba AMBULATION-sba 150 feet A/P- Interdisciplinary team conference held today. Please see interdisciplinary sheet. Working toward d.c. on 09/21 with post discharge follow up of physical therapy, occupational therapy. Results/Medications Results 24 hrs Laboratory Tests Test 09/17/17 12:11 09/17/17 17:14 09/17/17 20:33 09/18/17 07:50 Bedside Glucose 95 116 99 91 Medications Current Medications Oxcarbazepine (Trileptal) 600 mg BID PO Last administered on 09/18/17 08:09; Admin Dose 600 MG; Start 09/13/17 at 09:00 Acetaminophen/ Hydrocodone Bitart ([place] (10/325)) 1 tab Q4H PRN PO PAIN Last administered on 09/18/17 08:09; Admin Dose 1 TAB; Start 09/12/17 at 23:45 Atorvastatin Calcium (Lipitor) 20 mg DAILY@21 PO Last administered on 20:30; Admin Dose 20 MG; Start 09/13/17 at 21:00 Cyclobenzaprine HCl (Flexeril) 10 mg TID PO Last administered on 09/18/17 08: 08; Admin Dose 10 MG; Start 09/13/17 at 09:00 Miscellaneous Information 1 ea NOTE XX ; Start 09/12/17 at 23:45 Glucose (Glutose) 15 gm Q15M PRN PO DECREASED GLUCOSE; Start 09/12/17 at 23:45 Glucose (Glutose) 22.5 gm Q15M PRN PO DECREASED GLUCOSE; Start 09/12/17 at 23: 45 Dextrose (D50w Syringe) 25 ml Q15M PRN IV DECREASED GLUCOSE; Start 09/12/17 at 23:45 Dextrose (D50w Syringe) 50 ml Q15M PRN IV DECREASED GLUCOSE; Start 09/12/17 at 23:45 Glucagon (Glucagen) 1 mg Q15M PRN IM DECREASED GLUCOSE; Start 09/12/17 at 23:45 Glucose (Glutose) 15 gm Q15M PRN BUCCAL DECREASED GLUCOSE; Start 09/12/17 at 23 :45 Divalproex Sodium (Depakote) 1,000 mg BID PO Last administered on 09/18/17 08 :08; Admin Dose 1,000 MG; Start 09/13/17 at 09:00 Docusate Sodium (Colace) 100 mg DAILY PO Last administered on 09/18/17 08:09 ; Admin Dose 100 MG; Start 09/13/17 at 09:00 Diagnostic Test (Pha) (Accu-Chek) 1 ea 02 XX ; Start 09/13/17 at 02:00 Insulin Glargine (Lantus) 10 unit DAILY@20 SC Last administered on 09/17/17 20:40; Admin Dose 10 UNIT; Start 09/13/17 at 20:00 Linagliptin (Tradjenta) 5 mg DAILY PO Last administered on 09/18/17 08:09; Admin Dose 5 MG; Start 09/13/17 at 09:00 Magnesium Hydroxide (Milk Of Mag) 30 ml DAILY PRN PO CONSTIPATION Last administered on 09/16/17 20:35; Admin Dose 30 ML; Start 09/13/17 at 00:30 Acetaminophen (Tylenol Tab) 650 mg Q4H PRN PO PAIN AND OR ELEVATED TEMP Last administered on 09/15/17 13:36; Admin Dose 650 MG; Start 09/13/17 at 00:30 Bisacodyl (Dulcolax Supp) 10 mg DAILY PRN [place] CONSTIPATION; Start 09/13/17 at 00 :30 Acetaminophen/ Hydrocodone Bitart ([place] (10/325)) 2 tab Q6H PRN PO SEVERE PAIN LEVEL 7-10 Last administered on 09/17/17 20:30; Admin Dose 2 TAB; Start 09/15/17 at 13:00 ISAIAH SAWANT MD Sep 18, 2017 11:46
[2017-09-18 14:00] VITALS: BP 121/78; RESP 18
--- NOTE | 2017-09-18 17:27 | PN ---
Date/Time of Note Date/Time of Note DATE: 09/18/17 TIME: 17:26 Assessment/Plan VTE Prophylaxis VTE Prophylaxis Intervention: SCD's Lines/Catheters IV Catheter Type (from Nrsg): Saline Lock Urinary Cath still in place: No Assessment/Plan Chief Complaint/Hosp Course Patient continues to progress with physical therapy. Assessment/Plan -Lumbar spondylosis with mechanical low back pain and leg pain, status post L4- L5 and sacral laminectomy with posterolateral fusion and pedicle screw instrumentation by Dr. Diaz on 09/07. Continue physical therapy. -Hypertension -Hyperlipidemia -Diabetes, continue Tradjenta, Lantus, and NovoLog -Seizure disorder, continue Depakote -Possible sleep apnea Further recommendations based on clinical course. Plan of care discussed with Dr. Mills. Problems: Exam/Review of Systems Vital Signs Vitals Vital Signs Date Time Temp Pulse Resp B/P Pulse Ox O2 Delivery O2 Flow Rate FiO2 09/18/17 14:00 98.4 90 18 121/78 98 09/15/17 08:00 Room Air Intake and Output 09/17/17 09/17/17 09/18/17 15:00 23:00 07:00 Intake Total 400 ml 2400 ml 400 ml Output Total 1600 ml 1650 ml Balance 400 ml 800 ml -1250 ml Exam Constitutional: alert, oriented Respiratory: normal air movement Cardiovascular: nl pulses Gastrointestinal: non-tender, soft Musculoskeletal: nl extremities to inspection, other (Status post back surgery) Neurological: nl mental status Results Results 24 hrs Laboratory Tests Test 09/17/17 20:33 09/18/17 07:50 09/18/17 12:01 Bedside Glucose 99 91 106 Medications Medications Current Medications Oxcarbazepine (Trileptal) 600 mg BID PO Last administered on 09/18/17 08:09; Admin Dose 600 MG; Start 09/13/17 at 09:00 Acetaminophen/ Hydrocodone Bitart ([place] (10/325)) 1 tab Q4H PRN PO PAIN Last administered on 09/18/17 16:18; Admin Dose 1 TAB; Start 09/12/17 at 23:45 Atorvastatin Calcium (Lipitor) 20 mg DAILY@21 PO Last administered on 20:30; Admin Dose 20 MG; Start 09/13/17 at 21:00 Cyclobenzaprine HCl (Flexeril) 10 mg TID PO Last administered on 09/18/17 12: 51; Admin Dose 10 MG; Start 09/13/17 at 09:00 Miscellaneous Information 1 ea NOTE XX ; Start 09/12/17 at 23:45 Glucose (Glutose) 15 gm Q15M PRN PO DECREASED GLUCOSE; Start 09/12/17 at 23:45 Glucose (Glutose) 22.5 gm Q15M PRN PO DECREASED GLUCOSE; Start 09/12/17 at 23: 45 Dextrose (D50w Syringe) 25 ml Q15M PRN IV DECREASED GLUCOSE; Start 09/12/17 at 23:45 Dextrose (D50w Syringe) 50 ml Q15M PRN IV DECREASED GLUCOSE; Start 09/12/17 at 23:45 Glucagon (Glucagen) 1 mg Q15M PRN IM DECREASED GLUCOSE; Start 09/12/17 at 23:45 Glucose (Glutose) 15 gm Q15M PRN BUCCAL DECREASED GLUCOSE; Start 09/12/17 at 23 :45 Divalproex Sodium (Depakote) 1,000 mg BID PO Last administered on 09/18/17 08 :08; Admin Dose 1,000 MG; Start 09/13/17 at 09:00 Docusate Sodium (Colace) 100 mg DAILY PO Last administered on 09/18/17 08:09 ; Admin Dose 100 MG; Start 09/13/17 at 09:00 Diagnostic Test (Pha) (Accu-Chek) 1 ea 02 XX ; Start 09/13/17 at 02:00 Insulin Glargine (Lantus) 10 unit DAILY@20 SC Last administered on 09/17/17 20:40; Admin Dose 10 UNIT; Start 09/13/17 at 20:00 Linagliptin (Tradjenta) 5 mg DAILY PO Last administered on 09/18/17 08:09; Admin Dose 5 MG; Start 09/13/17 at 09:00 Magnesium Hydroxide (Milk Of Mag) 30 ml DAILY PRN PO CONSTIPATION Last administered on 09/16/17 20:35; Admin Dose 30 ML; Start 09/13/17 at 00:30 Acetaminophen (Tylenol Tab) 650 mg Q4H PRN PO PAIN AND OR ELEVATED TEMP Last administered on 09/15/17 13:36; Admin Dose 650 MG; Start 09/13/17 at 00:30 Bisacodyl (Dulcolax Supp) 10 mg DAILY PRN [place] CONSTIPATION; Start 09/13/17 at 00 :30 Acetaminophen/ Hydrocodone Bitart ([place] ()) 2 tab Q6H PRN PO SEVERE PAIN LEVEL 7-10 Last administered on 09/18/17t 12:51; Admin Dose 2 TAB; Start 09/15/17 at 13:00 ELINOR RODARTE Sep 18, 2017 17:27
[2017-09-18 20:00] VITALS: BP 120/74; RESP 18
[2017-09-18] MEDS: ATORVASTATIN 20 MG TAB PO SCH (20:48)
[2017-09-18] MEDS: INSULIN GLARGINE [LANtus] 3 ML PEN SC SCH (20:51)
[2017-09-19 02:00] VITALS: BP 126/84; RESP 18
[2017-09-19] MEDS: ACCUCHECK AT 2AM (Patients on SS coverage) XX SCH (02:00)
[2017-09-19] MEDS: HYDROCODONE/APAP (10/325) TAB PO PRN (02:10)
[2017-09-19 07:30] VITALS: BP 133/86; RESP 20
[2017-09-19] MEDS: Insulin NOVOLOG SS MILD Algorithm (SS with meals and bedtime) SC SCH ×2 (08:25→11:30)
[2017-09-19] MEDS: CYCLOBENZAPRINE 10 MG TAB PO SCH (08:26)
[2017-09-19] MEDS: OXCARBAZEPINE 300 MG TAB PO SCH (08:26)
[2017-09-19] MEDS: DOCUSATE SODIUM 100 MG CAP PO SCH (08:27)
[2017-09-19] MEDS: metFORMIN 500 MG TAB PO SCH (08:27)
[2017-09-19] MEDS: DIVALPROEX (EC) 500 MG TAB PO SCH (08:27)
[2017-09-19] MEDS: LINAGLIPTIN 5 MG TABLET PO SCH (08:27)
--- NOTE | 2017-09-19 10:16 | DS ---
Date/Time of Note Date/Time of Note DATE: 09/19/17 TIME: 10:13 Discharge Summary Admission/Discharge Info Admit Date/Time Sep 12, 2017 at 21:50 Discharge Date/Time Discharge Diagnosis 1. Other orthopedic disorder with lumbar spondylosis and radiculopathy, status post lumbar laminectomy and fusion. 2. Hypertension. 3. Diabetes mellitus. 4. Seizure disorder. 5. Sleep apnea. 6. History of right shoulder dislocation. 7. Improvements in self-care and mobility. Patient Condition: Good Hospital Course Patient was admitted for comprehensive interdisciplinary rehab, and made excellent progress. Patient progressed from a min/mod level, and progressed to the point of Independent to Modified Independent for self care and mobility. Patient is being discharged home with the reccomendation of home health PT and OT. He will follow up with his PMD and surgeon. DME rec: FWW, BSC, shower chair. Home Meds Reported Medications Atorvastatin Calcium* (Atorvastatin Calcium*) 20 Mg Tablet, 20 MG PO QHS, #30 TAB 08/09/17 Insulin Glargine,Hum.rec.anlog (Jeffery Castanon) 300 Unit/1 Ml Insuln.pen, 20 UNIT SQ QHS 08/09/17 Glipizide* (Glipizide*) 5 Mg Tablet, 5 MG PO DAILY, TAB 08/09/17 Amlodipine Besylate* (Amlodipine Besylate*) 10 Mg Tablet, 10 MG PO DAILY, #30 TAB 08/09/17 Hydrochlorothiazide* (Hydrochlorothiazide*) 25 Mg Tab, 25 MG PO DAILY, #30 TAB 08/09/17 Oxcarbazepine* (Oxcarbazepine*) 300 Mg Tablet, 600 MG PO BID, TAB 08/09/17 Divalproex Sodium* (Depakote*) 500 Mg Tablet.dr, 1000 MG PO BID, #120 TAB 08/09/17 Sitagliptin Phos/Metformin HCl (Janumet 50-1,000 mg Tablet) 1 Each Tablet, 1 EACH PO BID, TAB 08/09/17 Primary Care Provider Santiago Reddy Pending Labs Laboratory Tests Test 09/18/17 12:01 09/18/17 17:09 09/18/17 20:47 09/19/17 08:25 Bedside Glucose 106mg/dL (70-220) 99mg/dL (70-220) 96mg/dL (70-220) 125mg/dL (70-220) ISAIAH SAWANT MD Sep 19, 2017 10:16
--- NOTE | 2017-09-19 14:51 | PN ---
Date/Time of Note Date/Time of Note DATE: 09/19/17 TIME: PATIENT IS SEN AT 11:15. Assessment/Plan VTE Prophylaxis VTE Prophylaxis Intervention: SCD's Lines/Catheters IV Catheter Type (from Nrsg): Saline Lock Urinary Cath still in place: No Assessment/Plan Chief Complaint/Hosp Course Patient works with physical therapy, pending d/c home. Assessment/Plan -Lumbar spondylosis with mechanical low back pain and leg pain, status post L4- L5 and sacral laminectomy with posterolateral fusion and pedicle screw instrumentation by Dr. Diaz on 09/07. Continue physical therapy. -Hypertension -Hyperlipidemia -Diabetes, continue Tradjenta, Lantus, and NovoLog -Seizure disorder, continue Depakote -Possible sleep apnea Further recommendations based on clinical course. Plan of care discussed with Dr. Mills. Problems: Exam/Review of Systems Vital Signs Vitals Vital Signs Date Time Temp Pulse Resp B/P Pulse Ox O2 Delivery O2 Flow Rate FiO2 09/19/17 07:30 97.7 85 20 133/86 97 09/15/17 08:00 Room Air Intake and Output 09/18/17 09/18/17 09/19/17 14:59 22:59 06:59 Intake Total 2400 ml 350 ml Output Total 1600 ml 2150 ml Balance 800 ml -1800 ml Exam Constitutional: alert, oriented Respiratory: normal air movement Cardiovascular: nl pulses Gastrointestinal: non-tender, soft Musculoskeletal: nl extremities to inspection, other (Status post back surgery) Neurological: nl mental status Results Results 24 hrs Laboratory Tests Test 09/18/17 17:09 09/18/17 20:47 09/19/17 08:25 09/19/17 12:42 Bedside Glucose 99 96 125 99 ELINOR RODARTE Sep 19, 2017 14:51
== END 2017-09-19 13:34 | disposition home health service (06) | DRG 561 ==
LOC: VRC 21:50
PROVIDERS: ADMIT Physical Medicine & Rehabilitation; ATTEND Internal Medicine
PROC: F08Z1ZZ Dressing Techniques Treatment (ICD-10-PCS; principal; 2017-09-12)
PROC: F08Z2ZZ Grooming/Personal Hygiene Treatment (ICD-10-PCS; 2017-09-12)
PROC: F07Z5ZZ Bed Mobility Treatment (ICD-10-PCS; 2017-09-12)
PROC: F07Z8ZZ Transfer Training Treatment (ICD-10-PCS; 2017-09-12)
PROC: F07Z9ZZ Gait Training/Functional Ambulation Treatment (ICD-10-PCS; 2017-09-12)
DX: Z47.89 Encounter for other orthopedic aftercare (principal); I10 Essential (primary) hypertension; Z98.1 Arthrodesis status; Z87.39 Personal history of other diseases of the musculoskeletal system and connective tissue; E78.5 Hyperlipidemia, unspecified; E11.9 Type 2 diabetes mellitus without complications; G40.909 Epilepsy, unspecified, not intractable, without status epilepticus; E66.9 Obesity, unspecified; Z68.38 Body mass index [BMI] 38.0-38.9, adult; G47.30 Sleep apnea, unspecified
CPT/HCPCS: 80053; 81003; 82962; 85025; 87081; 87086; 97110; 97116; 97150; 97163; 97167; 97530; 97535; J1815